=== PATIENT | male | born 1960 | race Caucasian/White ===

== ENCOUNTER 2017-03-11 10:43 | Emergency (ER) | payer SELFPAY ==
[~2017-03-11] VITALS: Ht 182.9 cm; Wt 117.7 kg
[~2017-03-11 10:43] MED LIST: Z.0.NO CURRENT MEDS
[2017-03-11 10:55] VITALS: BP 168/97; PULSE 102; RESP 18; TEMP 98.9; O2SAT 96
[2017-03-11] MEDS ORDERED: CLINDAMYCIN INJ 900 MG in SODIUM CHLORIDE 0.9% INJ 100 ML IV ONE (11:15)
[2017-03-11] MEDS ORDERED: TETANUS/DIPHTHERIA TOXOID ADULT 0.5 ML VIAL IM ONE (11:15)
[2017-03-11] MEDS ORDERED: ACETAMINOPHEN 325 MG TAB PO ONE (11:15)
--- NOTE | 2017-03-11 11:36 | RADRPT ---
EXAM DATE/TIME: 03/11/2017 11:27 [facility] COMPARISON: No previous studies available for comparison. INDICATIONS : Infection on plantar surface of right great toe after stepping on nail one week ago. Non healing woun d to great toe. MEDICAL HISTORY : None. SURGICAL HISTORY : None. ENCOUNTER: Initial ACUITY: 1 week PAIN SCORE: 8/10 LOCATION: Right great toe FINDINGS: 2 views of the right foot reveal soft tissue swelling involving the great toe. No retained foreign rhonda dy. No cortical destruction. No fracture or dislocation. Spurring of the calcaneus. 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 CONCLUSION: Soft tissue swelling of the great toe. No radiopaque foreign body or plain radiographic evidence to s uggest osteomyelitis. Sandoval Lua Jr., MD on March 11, 2017 at 11:34 Board Certified Radiologist. This report was verified electronically.
--- NOTE | 2017-03-11 11:37 | RADRPT ---
EXAM DATE/TIME: 03/11/2017 11:29 [facility] COMPARISON: No previous studies available for comparison. INDICATIONS : Pain, swelling, redness across dorsum of left foot post stepping on nail one week ago. Puncture wound s are on the plantar surface of the 3 middle toes of left foot. MEDICAL HISTORY : None. SURGICAL HISTORY : None. ENCOUNTER: Initial ACUITY: 1 week PAIN SCORE: 8/10 LOCATION: Left foot FINDINGS: Two view examination of the left foot demonstrates no soft tissue swelling, dislocation, or fracture. The calcaneus is intact. Bony mineralization is normal. No cortical destruction. No radiopaque for eign body. Spurring of the calcaneus. CONCLUSION: 1. No rate waveform body. 2. Spurring of the calcaneus. Sandoval Lua Jr., MD on March 11, 2017 at 11:35 Board Certified Radiologist. This report was verified electronically.
--- NOTE | 2017-03-11 11:45 | PD ---
HPI Chief Complaint: Skin Problem Time Seen by Provider: 11:05 Travel History International Travel<30 days: No Contact w/Intl Traveler<30days: No Traveled to known affect area: No History of Present Illness HPI The patient is 56 years old and arrives following the event of stepping on a nail through the sole of the shoe evidently on both sides about 5 days ago. He started Bactrim 2 days ago. He notes a fever over the weekend as high as 101.5 amp. After starting Bactrim no fever has returned however redness about the feet and has persisted. Mild to moderate persistent pain and swelling is noted. He does not recall timing of last tetanus. PFSH Past Medical History Diminished Hearing: No Tetanus Vaccination: Unknown Influenza Vaccination: No Social History Alcohol Use: Yes (DAILY) Tobacco Use: No Substance Use: No Allergies-Medications (Allergen,Severity, Reaction): Coded Allergies: codeine (Unverified Adverse Reaction, Intermediate, GI UPSET, 03/03/17) Reported Meds & Prescriptions Reported Meds & Active Scripts Active Cipro (Ciprofloxacin HCl) 250 Mg Tab 750 Mg PO BID Clindamycin (Clindamycin HCl) 150 Mg Cap 450 Mg PO Q8HR Reported No Current Meds (Miscellaneous Medication) Misc Review of Systems Except as stated in HPI: all other systems reviewed are Neg General / Constitutional: Positive: Fever Physical Exam Narrative GENERAL: Well-nourished well-developed 56-year-old male SKIN: Warm and dry. Erythema about the bilateral lower extremities on the dorsal aspect of the foot on the left side more than the right side. There is generalized erythema and swelling of the right great toe with some oozing of serous discharge. There is no purulent discharge or fluctuance. There is no crepitus. The skin about the lower extremities is somewhat shiny however vasculature is intact, 2+ dorsalis pedis and posterior tibialis bilaterally. HEAD: Atraumatic. Normocephalic. EYES: Pupils equal and round. No scleral icterus. No injection or drainage. ENT: No nasal bleeding or discharge. Mucous membranes pink and moist. NECK: Trachea midline. No JVD. CARDIOVASCULAR: Regular rate and rhythm. RESPIRATORY: No accessory muscle use. Clear to auscultation. Breath sounds equal bilaterally. GASTROINTESTINAL: Abdomen soft, non-tender, nondistended. Hepatic and splenic margins not palpable. MUSCULOSKELETAL: Extremities without clubbing, cyanosis, or edema. No obvious deformities. NEUROLOGICAL: Awake and alert. No obvious cranial nerve deficits. Motor grossly within normal limits. Five out of 5 muscle strength in the arms and legs. Normal speech. PSYCHIATRIC: Appropriate mood and affect; insight and judgment normal. Data Data Last Documented VS Vital Signs Date Time Temp Pulse Resp B/P (MAP) Pulse Ox O2 Delivery O2 Flow Rate FiO2 03/11/17 10:55 98.9 102 18 168/97 (120) 96 Vital signs reviewed Orders Orders Basic Metabolic Panel (Bmp) (03/11/17 11:12) Wound Culture And Gram Stain (03/11/17 11:12) Iv Access Insert/Monitor (03/11/17 11:12) Acetaminophen (Tylenol) (03/11/17 11:15) Clindamycin Inj (Cleocin Inj) (03/11/17 11:15) Tetanus/Diphtheria Tox Adult (Tetanus/Di (03/11/17 11:15) Complete Blood Count With Diff (03/11/17 11:12) Foot, Limited (2vws) (03/11/17 ) Foot, Limited (2vws) (03/11/17 ) Ciprofloxacin (Cipro) (03/11/17 12:30) Labs Laboratory Tests Test 03/11/17 11:45 03/11/17 11:55 Blood Urea Nitrogen 19 MG/DL Creatinine 1.20 MG/DL Random Glucose 123 MG/DL Calcium Level 7.7 MG/DL Sodium Level 134 MEQ/L Potassium Level 4.2 MEQ/L Chloride Level 101 MEQ/L Carbon Dioxide Level 25.6 MEQ/L Anion Gap 7 MEQ/L Estimat Glomerular Filtration Rate 62 ML/MIN White Blood Count 8.1 TH/MM3 Red Blood Count 3.97 MIL/MM3 Hemoglobin 13.4 GM/DL Hematocrit 39.7 % Mean Corpuscular Volume 100.1 FL Mean Corpuscular Hemoglobin 33.7 PG Mean Corpuscular Hemoglobin Concent 33.7 % Red Cell Distribution Width 13.1 % Platelet Count 124 TH/MM3 Mean Platelet Volume 8.7 FL Neutrophils (%) (Auto) 76.9 % Lymphocytes (%) (Auto) 11.0 % Monocytes (%) (Auto) 10.5 % Eosinophils (%) (Auto) 1.1 % Basophils (%) (Auto) 0.5 % Neutrophils # (Auto) 6.2 TH/MM3 Lymphocytes # (Auto) 0.9 TH/MM3 Monocytes # (Auto) 0.9 TH/MM3 Eosinophils # (Auto) 0.1 TH/MM3 Basophils # (Auto) 0.0 TH/MM3 CBC Comment DIFF FINAL Differential Comment MDM Medical Decision Making Medical Screen Exam Complete: Yes Emergency Medical Condition: Yes Medical Record Reviewed: Yes Differential Diagnosis Cellulitis, sepsis, necrotizing fasciitis, osteomyelitis, retained foreign body , gout Narrative Course Plain films of the feet reveal no sign of osteomyelitis or retained foreign body CBC & BMP Diagram 03/11/17 11:45 Calcium Level 7.7 L 03/11/17 11:55 Tetanus administered. Clindamycin and Cipro administered. We'll send the patient with Cipro and clindamycin. Return precautions discussed. Patient verbalized understanding. Diagnosis Primary Impression: Cellulitis of both feet Additional Impression: Injury by nail Qualified Codes: W45.0XXA - Nail entering through skin, initial encounter Referrals: Primary Care Physician 2 days Additional Instructions: You have a choice when it comes to health care, and we are glad that you chose [facility]. Hopefully, we have met your expectations on today's visit. You are welcome to return to [facility] at any time, as we are committed to meeting the health care needs of our community. Med/Other Pt SpecificInfo: Prescription(s) given Scripts Ciprofloxacin (Cipro) 250 Mg Tab 750 MG PO BID for Infection, #10 TAB 0 Refills Prov: Joselito King MD 03/11/17 Clindamycin (Clindamycin) 150 Mg Cap 450 MG PO Q8HR for Infection, #10 CAP 0 Refills Prov: Joselito King MD 03/11/17 Disposition: DISCHARGE HOME Condition: Stable Joselito King MD Mar 11, 2017 11:45
[2017-03-11 12:05] LABS: POTASSIUM 4.2 MEQ/L (3.5-5.1)
[2017-03-11 12:08] LABS: BICARBONATE 25.6 MEQ/L (21.0-32.0)
[2017-03-11 12:11] LABS: AUTOMATED NEUTROPHIL # 6.2 TH/MM3 (1.8-7.7); BASOPHIL % 0.5 % (0.0-2.0); EOSINOPHIL # 0.1 TH/MM3 (0-0.4); EOSINOPHIL % 1.1 % (0.0-4.0); HEMATOCRIT 39.7 % (39.0-51.0); LYMPHOCYTE # 0.9 TH/MM3 (1.0-4.8); MEAN CELL VOLUME 100.1 FL (80.0-100.0); MEAN CORPUSCULAR HEMOGLOBIN 33.7 PG (27.0-34.0); MEAN CORPUSCULAR HGB CONC 33.7 % (32.0-36.0); MONO % 10.5 % (0.0-8.0); NEUT % 76.9 % (16.0-70.0); PLATELET COUNT 124 TH/MM3 (150-450); RED BLOOD COUNT 3.97 MIL/MM3 (4.50-5.90); RED CELL DISTRIBUTION WIDTH 13.1 % (11.6-17.2); WHITE BLOOD COUNT 8.1 TH/MM3 (4.0-11.0)
[2017-03-11 12:12] LABS: HEMO FLAGS DIFF FINAL
[2017-03-11] MEDS ORDERED: CLIN1CAP5 PO (12:26)
[2017-03-11] MEDS ORDERED: CIPR-9 PO (12:26)
[2017-03-11] MEDS ORDERED: CIPR250T52 PO (12:30)
[2017-03-11] MEDS ORDERED: CIPROFLOXACIN 500 MG TAB PO ONE (12:30)
[2017-03-11 13:18] VITALS: BP 156/100
[2017-03-21] MEDS ORDERED: CEFT2INJ2 IV (08:48)
[2017-04-02] MEDS ORDERED: HYDR-4107 PO (08:51)
== END 2017-03-11 13:24 | disposition home or self-care (01) ==
LOC: PHED 10:43
DX: L03.116 Cellulitis of left lower limb (principal); L03.115 Cellulitis of right lower limb; R50.9 Fever, unspecified; S91.332A Puncture wound without foreign body, left foot, initial encounter; W45.0XXA Nail entering through skin, initial encounter
CPT/HCPCS: 73620; 80048; 85025; 86403; 87070; 87186; 87205; 90471; 90714

== ENCOUNTER 2017-03-14 10:02 | Inpatient (IN) | payer SELFPAY ==
[~2017-03-14] VITALS: Ht 182.9 cm; Wt 126.2 kg
[~2017-03-14 10:02] MED LIST changes: +CIPR250T52 PO; +CLIN1CAP5 PO
[2017-03-14 10:08] VITALS: BP 185/105; PULSE 96; RESP 16; TEMP 98.6; O2SAT 98
--- NOTE | 2017-03-14 10:29 | PD ---
HPI Chief Complaint: Skin Problem Time Seen by Provider: 10:12 Travel History International Travel<30 days: No Contact w/Intl Traveler<30days: No Traveled to known affect area: No History of Present Illness HPI 56-year-old male presents with worsening redness to his bilateral feet despite multiple antibiotics. He was originally on Bactrim then he came here on the and was changed to clindamycin and ciprofloxacin. He states that he hasn' t had any fevers or throwing up but the area started to develop pus pocket that he drained on its own on his right foot. He states that given the redness is increasing he elected to come in. Quality is red. Severity is progressive. He denies other concurrent complaints. He states originally on 1 foot he stepped on 3 nails on the other foot he stepped on one nail that went through the sole of his shoe PFS Past Medical History Medical History: Denies Significant Hx Diminished Hearing: No Influenza Vaccination: No ?: Not Past Surgical History Surgical History: No Previous Surgery Social History Alcohol Use: Yes (DAILY) Tobacco Use: No Substance Use: No Allergies-Medications (Allergen,Severity, Reaction): Coded Allergies: codeine (Unverified Adverse Reaction, Intermediate, GI UPSET, 03/14/17) Reported Meds & Prescriptions Reported Meds & Active Scripts Active Cipro (Ciprofloxacin HCl) 250 Mg Tab 750 Mg PO BID Clindamycin (Clindamycin HCl) 150 Mg Cap 450 Mg PO Q8HR Review of Systems Except as stated in HPI: all other systems reviewed are Neg Physical Exam Narrative GENERAL: Well-nourished, well-developed patient. SKIN: Cellulitic changes to bilateral feet with Erythema and warmth noted to left hallux, erythema and warmth noted to anterior surface of entire right foot with extension into digits, lateral aspect of right hallux with yellow discoloration to skin for patient states he had pus draining, to bottom of right foot there is small simple laceration HEAD: Normocephalic and atraumatic. EYES: No injection or drainage. ENT: No nasal drainage noted. NECK: Supple, trachea midline. CARDIOVASCULAR: Regular rate and rhythm RESPIRATORY: No increased effort. No accessory muscle use. EXTREMITIES: No edema. Pain to bilateral feet, neurovascularly intact, no other specific joint pain NEUROLOGICAL: Awake and alert. Motor and sensory grossly within normal limits. Normal speech. Data Data Last Documented VS Vital Signs Date Time Temp Pulse Resp B/P (MAP) Pulse Ox O2 Delivery O2 Flow Rate FiO2 03/14/17 11:00 87 18 159/102 (121) 97 Room Air 03/14/17 10:08 98.6 Orders Orders Complete Blood Count With Diff (03/14/17 10:23) Comprehensive Metabolic Panel (03/14/17 10:23) Prothrombin Time / Inr (Pt) (03/14/17 10:23) Act Partial Throm Time (Ptt) (03/14/17 10:23) Lactic Acid Sepsis Protocol (03/14/17 10:23) Magnesium (Mg) (03/14/17 10:23) Blood Culture (03/14/17 10:23) Ecg Monitoring (03/14/17 10:23) Iv Access Insert/Monitor (03/14/17 10:23) Oximetry (03/14/17 10:23) Foot, Complete ([id number]) (03/14/17 ) Foot, Complete ([id number]) (03/14/17 ) Mri Foot W&W/O Contrast (03/14/17 ) Mri Foot W&W/O Contrast (03/14/17 ) Vancomycin Inj (Vancomycin Inj) (03/14/17 11:36) Piperacil-Tazo 4.5 Gm Premix (Zosyn 4.5 (03/14/17 11:36) Admit Order (Ed Use Only) (03/14/17 11:51) Labs Laboratory Tests Test 03/14/17 10:30 White Blood Count 7.8 TH/MM3 Red Blood Count 4.05 MIL/MM3 Hemoglobin 13.9 GM/DL Hematocrit 40.9 % Mean Corpuscular Volume 100.7 FL Mean Corpuscular Hemoglobin 34.3 PG Mean Corpuscular Hemoglobin Concent 34.0 % Red Cell Distribution Width 13.6 % Platelet Count 144 TH/MM3 Mean Platelet Volume 8.3 FL Neutrophils (%) (Auto) 72.7 % Lymphocytes (%) (Auto) 14.6 % Monocytes (%) (Auto) 8.6 % Eosinophils (%) (Auto) 3.5 % Basophils (%) (Auto) 0.6 % Neutrophils # (Auto) 5.7 TH/MM3 Lymphocytes # (Auto) 1.1 TH/MM3 Monocytes # (Auto) 0.7 TH/MM3 Eosinophils # (Auto) 0.3 TH/MM3 Basophils # (Auto) 0.0 TH/MM3 CBC Comment DIFF FINAL Differential Comment Prothrombin Time 13.4 SEC Prothromb Time International Ratio 1.2 RATIO Activated Partial Thromboplast Time 29.0 SEC Blood Urea Nitrogen 14 MG/DL Creatinine 0.96 MG/DL Random Glucose 131 MG/DL Total Protein 7.9 GM/DL Albumin 2.2 GM/DL Calcium Level 8.2 MG/DL Magnesium Level 1.8 MG/DL Alkaline Phosphatase 123 U/L Aspartate Amino Transf (AST/SGOT) 195 U/L Alanine Aminotransferase (ALT/SGPT) 106 U/L Total Bilirubin 5.4 MG/DL Sodium Level 136 MEQ/L Potassium Level 4.3 MEQ/L Chloride Level 104 MEQ/L Carbon Dioxide Level 20.6 MEQ/L Anion Gap 11 MEQ/L Estimat Glomerular Filtration Rate 80 ML/MIN Lactic Acid Level 1.7 mmol/L MDM Medical Decision Making Medical Screen Exam Complete: Yes Emergency Medical Condition: Yes Medical Record Reviewed: Yes (past history confirm, labwork reviewed, culture was positive for pansensitive staph aureus, given Cipro and clindamycin) Interpretation(s) CBC & BMP Diagram 03/14/17 10:30 Total Protein 7.9, Albumin 2.2 L, Calcium Level 8.2 L, Magnesium Level 1.8, Alkaline Phosphatase 123 H, Aspartate Amino Transf (AST/SGOT) 195 H, Alanine Aminotransferase (ALT/SGPT) 106 H, Total Bilirubin 5.4 H Last 24 hours Impressions Foot X-Ray 03/14/17 0000 Signed Impressions: Service Date/Time: Tuesday, March 14, 2017 10:39 - CONCLUSION: No acute bony abnormality of the left foot. Robe Fish MD Foot X-Ray 03/14/17 0000 Signed Impressions: Service Date/Time: Tuesday, March 14, 2017 10:38 - CONCLUSION: 1. No acute bony abnormality of the right foot. 2. 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 3. Moderate to large heel spur. Robe Fish MD Differential Diagnosis Foreign body, abscess, cellulitis Narrative Course Will check blood work, x-ray and discuss with podiatry Patient updated and agrees to MRIs, admission and antibiotics with podiatry consultation Physician Communication Physician Communication dr norman states to check bilateral foot mris with and without contrast and admit to medicine with vancomycin and zosyn dr meehan agrees to admit Diagnosis Primary Impression: Puncture wound to foot Qualified Codes: S91.331A - Puncture wound without foreign body, right foot, initial encounter Additional Impressions: Cellulitis Qualified Codes: L03.115 - Cellulitis of right lower limb Puncture wound of foot Qualified Codes: S91.332A - Puncture wound without foreign body, left foot, initial encounter Cellulitis of foot, left Admitting Information Admitting Physician Requests: Admit Nilda Armstrong MD Mar 14, 2017 10:29
[2017-03-14 10:41] LABS: AUTOMATED NEUTROPHIL # 5.7 TH/MM3 (1.8-7.7); BASOPHIL % 0.6 % (0.0-2.0); EOSINOPHIL # 0.3 TH/MM3 (0-0.4); EOSINOPHIL % 3.5 % (0.0-4.0); HEMATOCRIT 40.9 % (39.0-51.0); HEMO FLAGS DIFF FINAL; LYMPH % 14.6 % (9.0-44.0); LYMPHOCYTE # 1.1 TH/MM3 (1.0-4.8); MEAN CELL VOLUME 100.7 FL (80.0-100.0); MEAN CORPUSCULAR HEMOGLOBIN 34.3 PG (27.0-34.0); MONO % 8.6 % (0.0-8.0); NEUT % 72.7 % (16.0-70.0); PLATELET COUNT 144 TH/MM3 (150-450); RED BLOOD COUNT 4.05 MIL/MM3 (4.50-5.90); RED CELL DISTRIBUTION WIDTH 13.6 % (11.6-17.2); WHITE BLOOD COUNT 7.8 TH/MM3 (4.0-11.0)
[2017-03-14 10:53] LABS: CHLORIDE 104 MEQ/L (98-107); POTASSIUM 4.3 MEQ/L (3.5-5.1); SODIUM (NA) 136 MEQ/L (136-145)
[2017-03-14 10:57] LABS: ANION GAP 11 MEQ/L (5-15); BICARBONATE 20.6 MEQ/L (21.0-32.0); BLOOD UREA NITROGEN 14 MG/DL (7-18); INTERNATIONAL NORMALIZED RATIO 1.2 RATIO; MAGNESIUM 1.8 MG/DL (1.5-2.5); PROTHROMBIN TIME - PATIENT 13.4 SEC (9.8-11.6)
[2017-03-14 11:00] VITALS: BP 159/102; PULSE 87; RESP 18; O2SAT 97
[2017-03-14 11:00] LABS: ALT (GPT) 106 U/L (12-78); AST (GOT) 195 U/L (15-37); GLOMERULAR FILTRATION RATE 80 ML/MIN (>89)
[2017-03-14 11:01] LABS: TOTAL BILIRUBIN ADULT 5.4 MG/DL (0.2-1.0)
[2017-03-14 11:02] LABS: ALKALINE PHOSPHATASE 123 U/L (45-117)
--- NOTE | 2017-03-14 11:06 | RADRPT ---
EXAM DATE/TIME: 03/14/2017 10:38 [facility] COMPARISON: No previous studies available for comparison. INDICATIONS : Bilateral foot infections from nail puncture wounds, no improvement to feet MEDICAL HISTORY : None. SURGICAL HISTORY : None. ENCOUNTER: Subsequent ACUITY: 1 week PAIN SCORE: 7/10 LOCATION: Right foot FINDINGS: No fracture, subluxation or bone destruction seen. No radiopaque foreign body. There is a moderate to large heel spur. There is osteoarthritis of the ankle joint with small anterior and posterior osteochondral bodies. CONCLUSION: 1. No acute bony abnormality of the right foot. 2. 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 3. Moderate to large heel spur. Robe Fish MD on March 14, 2017 at 11:03 Board Certified Radiologist. This report was verified electronically.
--- NOTE | 2017-03-14 11:06 | RADRPT ---
EXAM DATE/TIME: 03/14/2017 10:39 [facility] COMPARISON: No previous studies available for comparison. INDICATIONS : Bilateral foot infection from nail puncture wounds, no improvement to feet MEDICAL HISTORY : None. SURGICAL HISTORY : None. ENCOUNTER: Subsequent ACUITY: 1 week PAIN SCORE: 7/10 LOCATION: Left foot FINDINGS: No fracture, subluxation or bone destruction seen of the left foot. No radiopaque foreign body. There is a moderate-sized heel spur. CONCLUSION: No acute bony abnormality of the left foot. Robe Fish MD on March 14, 2017 at 11:04 Board Certified Radiologist. This report was verified electronically.
[2017-03-14] MEDS ORDERED: VANCOMYCIN INJ 1,000 MG in SODIUM CHLOR 0.9% 250 ML INJ 250 ML IV STA (11:36)
[2017-03-14] MEDS ORDERED: PIPERACIL-TAZO 4.5 GM PREMIX 100 ML IV STA (11:36)
[2017-03-14] MEDS ORDERED: NALOXONE HCL 0.4 MG/ML AMP IV PRN (12:00)
[2017-03-14] MEDS ORDERED: SODIUM CHLORIDE 0.9% FLUSH 10 ML FLUSH IV FLUSH PRN (12:00)
[2017-03-14] MEDS ORDERED: LACTULOSE SYRUP 20 GM/30 ML CUP PO PRN (12:00)
[2017-03-14] MEDS ORDERED: ONDANSETRON HCL 4 MG/2 ML VIAL IVP PRN (12:00)
[2017-03-14] MEDS ORDERED: BISACODYL 10 MG SUPP RECTAL PRN (12:00)
[2017-03-14] MEDS ORDERED: MAGNESIUM HYDROXIDE SUSP 30 ML CUP PO PRN (12:00)
[2017-03-14] MEDS ORDERED: SENNOSIDES 8.6 MG TAB PO PRN (12:00)
[2017-03-14] MEDS ORDERED: Vancomycin Consult Pharmacy 1 EA OTHER SCH (12:15)
[2017-03-14] MEDS ORDERED: VANCOMYCIN INJ 1,000 MG in SODIUM CHLOR 0.9% 250 ML INJ 250 ML IV ONE (12:45)
[2017-03-14] MEDS: SODIUM CHLOR 0.45% 1000 ML INJ 1,000 ML IV SCH (12:49)
[2017-03-14 12:55] LABS: TOTAL BILIRUBIN ADULT 5.5 MG/DL (0.2-1.0)
[2017-03-14 13:01] VITALS: BP 170/99; PULSE 74; RESP 18; O2SAT 97
--- NOTE | 2017-03-14 13:01 | RADRPT ---
EXAM DATE/TIME: 03/14/2017 17:29 [facility] COMPARISON: No previous studies available for comparison. INDICATIONS : Increased lab values. MEDICAL HISTORY : Abdomen pain. Bilateral feet swelling. SURGICAL HISTORY : None. ENCOUNTER: Initial ACUITY: 3 days PAIN SCORE: 3/10 LOCATION: Bilateral upper quadrant MEASUREMENTS: LIVER: 19.9 cm length COMMON DUCT: 3 mm RIGHT KIDNEY: 14.0 x 5.3 x 4.9 cm SPLEEN: 11.2 cm length FINDINGS: LIVER: The liver demonstrates mildly heterogeneous echotexture without evidence of mass or biliary obstructi on. The liver appears mildly enlarged COMMON DUCT: No intraluminal mass or stone visualized. GALLBLADDER: The gallbladder is contracted without evidence of stones. PANCREAS: The pancreas appears mildly ill-defined and increased in echogenicity. RIGHT KIDNEY: Well-circumscribed simple benign cyst and punctate small, 4 mm stones identified within the midpole. No evidence of hydronephrosis. SPLEEN: Multiple echogenic foci with posterior shadowing consistent with small calcified granulomas. CONCLUSION: The liver appears mildly enlarged in size and heterogeneous in echotexture. No evidence of mass or bi liary obstruction. The pancreas appears increased in echogenicity and somewhat ill-defined. This may represent findings secondary to acute pancreatitis. Correlate with patient's laboratory values. Francesca Jerry MD on March 14, 2017 at 12:56 Board Certified Radiologist. This report was verified electronically.
[2017-03-14] MEDS ORDERED: GADODIAMIDE PF 287 MG/ML 20 ML VIAL (for RAD MRI) IVCONTRAST ONE (16:17)
--- NOTE | 2017-03-14 16:41 | RADRPT ---
EXAM DATE/TIME: 03/14/2017 15:14 [facility] COMPARISON: No previous studies available for comparison. INDICATIONS : Abscess. CONTRAST: 20 cc Omniscan (gadodiamide) IV MEDICAL HISTORY : None. SURGICAL HISTORY : None. ENCOUNTER: Initial ACUITY: 1 week PAIN SCORE: 5/10 LOCATION: Left foot TECHNIQUE: Multiplanar, multisequence MRI examination was performed without contrast and after the intravenous a dministration of gadolinium. FINDINGS: There is evidence of diffuse marrow edema and enhancement involving the shaft and head of the left 3r d metatarsal as well as the proximal portion of the left 3rd proximal phalanx raising the possibility of osteomyelitis of these bones. Extensive surrounding soft tissue edema and enhancement is also no anila consistent with cellulitis. There is deep soft tissue abscess along the inferior aspect of the l eft 3rd metatarsal head measuring 1.4 x 1.3 cm as well as superficial subcutaneous abscess collection s along the dorsum of the left mid foot superficial to the extensor tendons with the largest collecti on measuring 2.3 x 1.0 cm. CONCLUSION: Marrow edema and enhancement involving the shaft and head of the left 3rd metatarsal as well as the p roximal portion of the 3rd proximal phalanx consistent with probable osteomyelitis of these bones. T here is also probable deep soft tissue abscess along the plantar aspect of the left 3rd metatarsal me asuring 1.4 x 1.3 cm as well as more superficial subcutaneous abscess collections along the dorsum of the left mid foot superficial to the extensor tendons with the largest collection measuring 2.3 x 1. 0 cm. Diffuse subcutaneous swelling and enhancement is also noted suggestive of cellulitis of the le ft mid foot. Thor Lock MD on March 14, 2017 at 16:23 Board Certified Radiologist. This report was verified electronically.
--- NOTE | 2017-03-14 16:58 | RADRPT ---
EXAM DATE/TIME: 03/14/2017 14:26 [facility] COMPARISON: No previous studies available for comparison. INDICATIONS : Abscess. CONTRAST: 20 cc Omni scan (gadodiamide) IV MEDICAL HISTORY : None. SURGICAL HISTORY : None. ENCOUNTER: Initial ACUITY: 1 week PAIN SCORE: 5/10 LOCATION: Right foot TECHNIQUE: Multiplanar, multisequence MRI examination was performed without contrast and after the intravenous a dministration of gadolinium. FINDINGS: There is diffuse subcutaneous enhancement involving the plantar aspect of the right mid foot predomin antly along the plantar aspects of the 1st, 2nd and 3rd metatarsals but also extending between the 1s t and 2nd metatarsal towards the dorsal aspect of the right foot. This finding is consistent with ex tensive cellulitis. Small subcutaneous abscesses are identified along the plantar aspect of the righ t foot with the largest measuring 1.1 x 0.6 cm. There is very slight enhancement of the right 1st pr oximal phalanx raising the possibility of osteomyelitis of this bone. CONCLUSION: 1. Diffuse subcutaneous swelling and enhancement along the plantar aspect of the right mid foot pred ominantly in the region of the 1st, 2nd and 3rd metatarsals but also extending between the 1st and 2n d metatarsal towards the dorsal surface of the right foot consistent with diffuse cellulitis. 2. Small subcutaneous abscess collections along the plantar aspect of the right mid foot with the la rgest measuring 11 x 6 mm. 3. Subtle enhancement of the 1st proximal phalanx raising the possibility of osteomyelitis of this b one. Thor Lock MD on March 14, 2017 at 16:34 Board Certified Radiologist. This report was verified electronically.
[2017-03-14 17:00] VITALS: BP 197/121; PULSE 74; RESP 17; TEMP 97.6; O2SAT 100
[2017-03-14] MEDS ORDERED: NIFEdipine 30 MG SUSTAINED RELEASE TAB PO ONE (17:15)
--- NOTE | 2017-03-14 17:22 | HHI.HP ---
[facility] No Primary Care Physician Admission Diagnosis bilateral foot infection Diagnoses: Travel History International Travel<30 Days: No Contact w/Intl Traveler <30 Da: No Traveled to Known Affected Are: No History of Present Illness 56-year-old male with no reported past medical history, who presents with having stepped on nails in bilateral feet 2 weeks ago. Reports continued worsening pain in bilateral feet. He reports fevers up to 101 Fahrenheit. Patient previously seen in the ER here, and had been on Cipro and clindamycin. He denies any fevers, chills, chest pain, shortness of breath, constipation, diarrhea. LFTs were ordered in the ER and elevated. When asked about his yellow appearance, he does say that his noted it today for the first time. denies any abdominal pain. He does drink about 8 ounces of vodka every day, however his most recent drink was 2 weeks ago. Review of Systems Except as stated in HPI: all other systems reviewed are Neg Past Family Social History Past Medical History Patient denies any past medical history. 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 Reported Medications patient takes [id number] naproxen as necessary. Allergies: Coded Allergies: codeine (Unverified Adverse Reaction, Intermediate, GI UPSET, 03/14/17) Family History Mother with Alzheimer's. Father is estranged. Social History Patient quit smoking 12 years ago. Patient drinks to 4 ounce vodka drinks per day, however quit 2 weeks ago. Denies any illicit drugs. Physical Exam Vital Signs Vital Signs Date Time Temp Pulse Resp B/P (MAP) Pulse Ox O2 Delivery O2 Flow Rate FiO2 03/14/17 14:02 03/14/17 13:01 74 18 170/99 (122) 97 Room Air 03/14/17 11:00 87 18 159/102 (121) 97 Room Air 03/14/17 10:08 98.6 96 16 185/105 (131) 98 Physical Exam GENERAL: This is a well-nourished, well-developed patient, in no apparent distress. Alert and oriented 3. SKIN: No rashes, ecchymoses or lesions. Cool and dry. HEAD: Atraumatic. Normocephalic. No temporal or scalp tenderness. EYES: Pupils equal round and reactive. Extraocular motions intact. No scleral icterus. No injection or drainage. ENT: Nose without bleeding, purulent drainage or septal hematoma. Throat without erythema, tonsillar hypertrophy or exudate. Uvula midline. Airway patent. NECK: Trachea midline. No JVD or lymphadenopathy. Supple, nontender, no meningeal signs. CARDIOVASCULAR: Regular rate and rhythm without murmurs, gallops, or rubs. RESPIRATORY: Clear to auscultation. Breath sounds equal bilaterally. No wheezes , rales, or rhonchi. GASTROINTESTINAL: Abdomen soft, non-tender, nondistended. No hepato-splenomegaly , or palpable masses. No guarding. MUSCULOSKELETAL: Extremities without clubbing, cyanosis, or edema. . No calf tenderness. Negative Homans sign bilaterally. I lateral feet with erythema. Right foot with first MTP erythema, warmth. Left foot with erythema over the dorsum. Slight cracked skin between the third and fourth foot NEUROLOGICAL: Awake and alert. Cranial nerves II through XII intact. Motor and sensory grossly within normal limits. Five out of 5 muscle strength in all muscle groups. Normal speech. Laboratory Laboratory Tests Test 03/14/17 10:20 03/14/17 10:30 03/14/17 12:20 03/14/17 12:55 Total Bilirubin 5.5 5.4 Direct Bilirubin 3.5 Indirect Bilirubin 2.0 White Blood Count 7.8 Red Blood Count 4.05 Hemoglobin 13.9 Hematocrit 40.9 Mean Corpuscular Volume 100.7 Mean Corpuscular Hemoglobin 34.3 Mean Corpuscular Hemoglobin Concent 34.0 Red Cell Distribution Width 13.6 Platelet Count 144 Mean Platelet Volume 8.3 Neutrophils (%) (Auto) 72.7 Lymphocytes (%) (Auto) 14.6 Monocytes (%) (Auto) 8.6 Eosinophils (%) (Auto) 3.5 Basophils (%) (Auto) 0.6 Neutrophils # (Auto) 5.7 Lymphocytes # (Auto) 1.1 Monocytes # (Auto) 0.7 Eosinophils # (Auto) 0.3 Basophils # (Auto) 0.0 CBC Comment DIFF FINAL Differential Comment Prothrombin Time 13.4 Prothromb Time International Ratio 1.2 Activated Partial Thromboplast Time 29.0 Blood Urea Nitrogen 14 Creatinine 0.96 Random Glucose 131 Total Protein 7.9 Albumin 2.2 Calcium Level 8.2 Magnesium Level 1.8 Alkaline Phosphatase 123 Aspartate Amino Transf (AST/SGOT) 195 Alanine Aminotransferase (ALT/SGPT) 106 Sodium Level 136 Potassium Level 4.3 Chloride Level 104 Carbon Dioxide Level 20.6 Anion Gap 11 Estimat Glomerular Filtration Rate 80 Lactic Acid Level 1.7 Urine Opiates Screen NEG Urine Barbiturates Screen NEG Urine Amphetamines Screen NEG Urine Benzodiazepines Screen NEG Urine Cocaine Screen NEG Urine Cannabinoids Screen POS Date/Time Source Procedure Growth Status 03/14/17 10:35 Blood Peripheral Aerobic Blood Culture Pending Received 03/14/17 10:35 Blood Peripheral Anaerobic Blood Culture Pending Received Result Diagram: 03/14/17 1030 03/14/17 1030 Imaging Last Impressions Liver Ultrasound 03/14/17 0000 Signed Impressions: Service Date/Time: Tuesday, March 14, 2017 17:29 - CONCLUSION: The liver appears mildly enlarged in size and heterogeneous in echotexture. No evidence of mass or biliary obstruction. The pancreas appears increased in echogenicity and somewhat ill-defined. This may represent findings secondary to acute pancreatitis. Correlate with patient's laboratory values. Francesca Jerry MD Foot X-Ray 03/14/17 0000 Signed Impressions: Service Date/Time: Tuesday, March 14, 2017 10:39 - CONCLUSION: No acute bony abnormality of the left foot. Robe Fish MD Capcassi VTE Risk Assessment Caprini VTE Risk Assessment: No/Low Risk (score <= 1) Caprini Risk Assessment Model Point Value = 1 Point Value = 2 Point Value = 3 Point Value = 5 Age 41-60 Minor surgery BMI > 25 kg/m2 Swollen legs Varicose veins or History of unexplained or recurrent spontaneous Oral contraceptives or hormone replacement Sepsis (< 1 month) Serious lung disease, including pneumonia (< 1 month) Abnormal pulmonary function Acute myocardial infarction Congestive heart failure (< 1 month) History of inflammatory bowel disease Medical patient at bed rest Age 61-74 Arthroscopic surgery Major open surgery (> 45 min) Laparoscopic surgery (> 45 min) Malignancy Confined to bed (> 72 hours) Immobilizing plaster cast Central venous access Age >= 75 History of VTE Family history of VTE Factor V Leiden Prothrombin [id number] Lupus anticoagulant Anticardiolipin antibodies Elevated serum homocysteine Heparin-induced thrombocytopenia Other congenital or acquired thrombophilia Stroke (< 1 month) Elective arthroplasty Hip, pelvis, or leg fracture Acute spinal cord injury (< 1 month) Prophylaxis Regimen Total Risk Factor Score Risk Level Prophylaxis Regimen 0-1 Low Early ambulation 2 Moderate Order ONE of the following: *Sequential Compression Device (SCD) *Heparin 5000 units SQ BID 3-4 Higher Order ONE of the following medications: *Heparin 5000 units SQ TID *Enoxaparin/Lovenox 40 mg SQ daily (WT < 150 kg, CrCl > 30 mL/min) *Enoxaparin/Lovenox 30 mg SQ daily (WT < 150 kg, CrCl > 10-29 mL/min) *Enoxaparin/Lovenox 30 mg SQ BID (WT < 150 kg, CrCl > 30 mL/min) AND/OR *Sequential Compression Device (SCD) 5 or more Highest Order ONE of the following medications: *Heparin 5000 units SQ TID (Preferred with Epidurals) *Enoxaparin/Lovenox 40 mg SQ daily (WT < 150 kg, CrCl > 30 mL/min) *Enoxaparin/Lovenox 30 mg SQ daily (WT < 150 kg, CrCl > 10-29 mL/min) *Enoxaparin/Lovenox 30 mg SQ BID (WT < 150 kg, CrCl > 30 mL/min) AND *Sequential Compression Device (SCD) Assessment and Plan Assessment and Plan //Bilateral lower extremity foot abscess with //osteomyelitis. acute //Suspected sepsis -Patient reports measured fevers at home up to 101 Fahrenheit. Tachycardic on admission. -MRI report reviewed. -Lactate 1.6. Blood cultures pending. Podiatry consulted. Appreciate assistance. //Accelerated hypertension. -Systolic blood pressure up to 220s -TSH ordered Nifedipine ordered. Clonidine when necessary. Continue to monitor. //Transaminitis -Scleral icterus on exam. -Patient with no complaints of abdominal pain. -Liver ultrasound mildly enlarged. Ill-defined pancreas -AST, ALC elevated 195, 106, with bilirubinemia. no anemia. -Further labs pending. //Thrombocytopenia. Likely secondary to liver disease. No signs of bleeding. Continue to monitor. //Hyperglycemia. Glucose 131 on admission. A1c ordered and pending. //Prophylaxis. SCDs. Otherwise As per surgical service. Discussed Condition With Patient, nurse, ED physician. Physician Certification 2 Midnight Certification Type: Admission for Inpatient Services Order for Inpatient Services The services are ordered in accordance with Medicare regulations or non- Medicare payer requirements, as applicable. In the case of services not specified as inpatient-only, they are appropriately provided as inpatient services in accordance with the 2-midnight benchmark. Estimated LOS (days): 3 days is the estimated time the patient will need to remain in the hospital, assuming treatment plan goals are met and no additional complications. Post-Hospital Plan: Not yet determined Jeff Lantigua MD Mar 14, 2017 17:22
[2017-03-14 20:00] VITALS: BP 190/115; PULSE 77; RESP 20; TEMP 96.3; O2SAT 98
--- NOTE | 2017-03-14 20:05 | PD.CONS ---
History of Present Illness Service Podiatry Consult Requested By Reason for Consult R and L foot infections, s/p puncture wound with nails Primary Care Physician No Primary Care Physician Diagnoses: History of Present Illness 56-year-old male with no reported past medical history, who presents with having stepped on nails in bilateral feet 2 weeks ago. Came in to ED on and Podiatry was not consulted regarding this patient. He had fever at that visit and redness/swelling with pain. Reports continued worsening pain in bilateral feet. He reports fevers up to 101 Fahrenheit. Patient was given rx for Cipro and clindamycin when seen in ED at previous visit. He denies any fevers, chills, chest pain, shortness of breath, constipation, diarrhea. Past Family Social History Allergies: Coded Allergies: codeine (Unverified Adverse Reaction, Intermediate, GI UPSET, 03/14/17) Past Medical History Patient denies any past medical history. 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 Active Ordered Medications Current Medications Medications (Trade) Dose Ordered Sig/Deanna Route Start Time Stop Time Status Last Admin Sodium Chloride 1,000 ml @ 75 mls/hr [id number] IV 03/14/17 11:52 03/15/17 15:51 (NS Flush) 2 ml UNSCH PRN IV FLUSH 03/14/17 12:00 (NS Flush) 2 ml BID IV FLUSH 03/14/17 21:00 03/14/17 21:00 (Zofran Inj) 4 mg Q6H PRN IVP 03/14/17 12:00 (Narcan Inj) 0.4 mg UNSCH PRN IV 03/14/17 12:00 (Milk Of Magnesia Liq) 30 ml Q12H PRN PO 03/14/17 12:00 (Senokot) 17.2 mg Q12H PRN PO 03/14/17 12:00 (Dulcolax Supp) 10 mg DAILY PRN RECTAL 03/14/17 12:00 (Lactulose Liq) 30 ml DAILY PRN PO 03/14/17 12:00 Pharmacy Profile Note 0 ml @ 0 mls/hr UNSCH OTHER 03/14/17 12:15 Piperacillin Sod/ Tazobactam Sod 100 ml @ 200 mls/hr Q6H IV 03/14/17 19:00 03/15/17 15:46 Miscellaneous Information SPECIFIC LAB TO BE DRAWN:VANCO TROUGH DATE TO BE DRDiana.. ONCE ONCE .XX 03/15/17 23:45 03/15/17 23:46 Vancomycin HCl 2000 mg/Sodium Chloride 520 ml @ 250 mls/hr Q12H IV 03/15/17 00:00 03/15/17 12:30 (Catapres) 0.1 mg Q6H PRN PO 03/14/17 17:15 03/14/17 23:21 (Procardia Xl) 30 mg DAILY PO 03/15/17 09:00 (Roxicodone) 10 mg Q4H PRN PO 03/15/17 17:30 03/15/17 17:33 (Roxicodone) 5 mg Q6H PRN PO 03/15/17 17:30 Calcium Gluconate 1 gm/Sodium Chloride 100 ml @ 100 mls/hr ONCE ONCE IV 03/15/17 21:00 03/15/17 21:59 Family History Mother with Alzheimer's. Father is estranged. Social History Patient quit smoking 12 years ago. Patient drinks to 4 ounce vodka drinks per day, however quit 2 weeks ago. Denies any illicit drugs. Physical Exam Vital Signs Vital Signs Date Time Temp Pulse Resp B/P (MAP) Pulse Ox O2 Delivery O2 Flow Rate FiO2 03/14/17 17:00 97.6 74 17 197/121 (146) 100 03/14/17 14:02 03/14/17 13:01 74 18 170/99 (122) 97 Room Air 03/14/17 11:00 87 18 159/102 (121) 97 Room Air 03/14/17 10:08 98.6 96 16 185/105 (131) 98 Physical Exam Neurovascularly intact. Small puncture wound to plantar R base of hallux. Minimal erythema today. No purulence noted. Painful Small puncture wound L plantar central forefoot with diffuse erythema and induration noted to dorsal forefoot and pain. Laboratory Laboratory Tests Test 03/14/17 10:20 03/14/17 10:30 03/14/17 12:20 03/14/17 12:55 Total Bilirubin 5.5 5.4 Direct Bilirubin 3.5 Indirect Bilirubin 2.0 White Blood Count 7.8 Red Blood Count 4.05 Hemoglobin 13.9 Hematocrit 40.9 Mean Corpuscular Volume 100.7 Mean Corpuscular Hemoglobin 34.3 Mean Corpuscular Hemoglobin Concent 34.0 Red Cell Distribution Width 13.6 Platelet Count 144 Mean Platelet Volume 8.3 Neutrophils (%) (Auto) 72.7 Lymphocytes (%) (Auto) 14.6 Monocytes (%) (Auto) 8.6 Eosinophils (%) (Auto) 3.5 Basophils (%) (Auto) 0.6 Neutrophils # (Auto) 5.7 Lymphocytes # (Auto) 1.1 Monocytes # (Auto) 0.7 Eosinophils # (Auto) 0.3 Basophils # (Auto) 0.0 CBC Comment DIFF FINAL Differential Comment Prothrombin Time 13.4 Prothromb Time International Ratio 1.2 Activated Partial Thromboplast Time 29.0 Blood Urea Nitrogen 14 Creatinine 0.96 Random Glucose 131 Total Protein 7.9 Albumin 2.2 Calcium Level 8.2 Magnesium Level 1.8 Alkaline Phosphatase 123 Aspartate Amino Transf (AST/SGOT) 195 Alanine Aminotransferase (ALT/SGPT) 106 Sodium Level 136 Potassium Level 4.3 Chloride Level 104 Carbon Dioxide Level 20.6 Anion Gap 11 Estimat Glomerular Filtration Rate 80 Lactic Acid Level 1.7 Urine Opiates Screen NEG Urine Barbiturates Screen NEG Urine Amphetamines Screen NEG Urine Benzodiazepines Screen NEG Urine Cocaine Screen NEG Urine Cannabinoids Screen POS Test 03/14/17 17:30 Erythrocyte Sedimentation Rate 31 Total Creatine Kinase 35 C-Reactive Protein 0.60 Lipase 658 Thyroid Stimulating Hormone 3rd Gen 2.920 Date/Time Source Procedure Growth Status 03/14/17 10:35 Blood Peripheral Aerobic Blood Culture Pending Received 03/14/17 10:35 Blood Peripheral Anaerobic Blood Culture Pending Received Result Diagram: 03/14/17 1030 03/14/17 1030 Imaging Last 72 hours Impressions Liver Ultrasound 03/14/17 0000 Signed Impressions: Service Date/Time: Tuesday, March 14, 2017 17:29 - CONCLUSION: The liver appears mildly enlarged in size and heterogeneous in echotexture. No evidence of mass or biliary obstruction. The pancreas appears increased in echogenicity and somewhat ill-defined. This may represent findings secondary to acute pancreatitis. Correlate with patient's laboratory values. Francesca Jerry MD Foot X-Ray 03/14/17 0000 Signed Impressions: Service Date/Time: Tuesday, March 14, 2017 10:39 - CONCLUSION: No acute bony abnormality of the left foot. Robe Fish MD Foot X-Ray 03/14/17 Signed Impressions: Service Date/Time: Tuesday, March 14, 2017 10:38 - CONCLUSION: 1. No acute bony abnormality of the right foot. 2. 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 3. Moderate to large heel spur. Robe Fish MD Foot MRI 03/14/17 Signed Impressions: Service Date/Time: Tuesday, March 14, 2017 14:26 - CONCLUSION: 1. Diffuse subcutaneous swelling and enhancement along the plantar aspect of the right mid foot predominantly in the region of the 1st, 2nd and 3rd metatarsals but also extending between the 1st and 2nd metatarsal towards the dorsal surface of the right foot consistent with diffuse cellulitis. 2. Small subcutaneous abscess collections along the plantar aspect of the right mid foot with the largest measuring 11 x 6 mm. 3. Subtle enhancement of the 1st proximal phalanx raising the possibility of osteomyelitis of this bone. Thor Lock MD Foot MRI 03/14/17 Signed Impressions: Service Date/Time: Tuesday, March 14, 2017 15:14 - CONCLUSION: Marrow edema and enhancement involving the shaft and head of the left 3rd metatarsal as well as the proximal portion of the 3rd proximal phalanx consistent with probable osteomyelitis of these bones. There is also probable deep soft tissue abscess along the plantar aspect of the left 3rd metatarsal measuring 1.4 x 1.3 cm as well as more superficial subcutaneous abscess collections along the dorsum of the left mid foot superficial to the extensor tendons with the largest collection measuring 2.3 x 1.0 cm. Diffuse subcutaneous swelling and enhancement is also noted suggestive of cellulitis of the left mid foot. Thor Lock MD Assessment and Plan Assessment and Plan Osteomyelitis L 3rd metatarsal neck/digit Osteomyelitis possible R hallux, proximal phalanx To OR for R hallux amputation with possible partial first ray amputation vs I &D with bone biopsy To OR for partial 3rd ray amputation and bone biopsy. Plan to possibly pack open vs wound vac and possible that he may need additional surgery needed later in the week for delayed primary closure Patient amenable to treatment plan Possible long-term IV antibiotics pending biopsy of remnant 3rd metatarsal L , which will be taken intraoperatively to determine if long-term abx necessary vs short term NPO after midnight, surgery scheduled 8 am tomorrow Paulina Valdez DPM Mar 14, 2017 20:05
[2017-03-14] MEDS: SODIUM CHLORIDE 0.9% FLUSH 10 ML FLUSH IV FLUSH SCH (21:00)
[2017-03-14] MEDS: PIPERACIL-TAZO 4.5 GM PREMIX 100 ML IV SCH (22:19)
[2017-03-14] MEDS: cloNIDine HCL 0.1 MG TAB PO PRN (23:21)
[2017-03-15] VITALS (7 sets, daily range): BP systolic 125–163; BP diastolic 85–103; PULSE 72–90; RESP 20; TEMP 95.7–98.2; O2SAT 97–99
[2017-03-15] MEDS: PIPERACIL-TAZO 4.5 GM PREMIX 100 ML IV SCH ×5 (01:00→23:39)
[2017-03-15] MEDS: SODIUM CHLOR 0.45% 1000 ML INJ 1,000 ML IV SCH ×2 (01:12→15:51)
[2017-03-15] MEDS ORDERED: BUPIVACAINE HCL PF 0.5% 30 ML VIAL ONE (06:47)
[2017-03-15] MEDS ORDERED: LIDOCAINE HCL 2% 50 ML VIAL ONE (06:48)
[2017-03-15] MEDS ORDERED: FAMOTIDINE 20 MG/2 ML VIAL ONE ×2 (07:38→07:43)
[2017-03-15] MEDS ORDERED: MIDAZOLAM HCL 2 MG/2 ML VIAL ONE (07:39)
[2017-03-15] MEDS ORDERED: LACTATED RINGER'S 1000 ML INJ 1,000 ML ONE (08:26)
--- NOTE | 2017-03-15 08:27 | HHI.PR ---
Immediate Post Op Note Procedure Date: Mar 15, 2017 Pre Op Diagnosis: 1. Abscess R great toe, possible osteomyelitis 2. Osteomyelitis with abscess L 3rd metatarsal/toe Post Op Diagnosis: same Surgeon: Paulina Valdez DPM Credit Collection Specialist(s): Staff Procedure: 1. I&D abscess R hallux with bone biopsy R proximal phalanx, packed open 2. I&D L foot with partial L 3rd ray amputation and bone biopsy L residual 3rd metatarsal, packed open Findings: Consistent with diagnoses. Plantar puncture wound sub R 1st proximal phalanx. Incision made plantarly and abscess located. 2nd incision made to dorsomedial aspect of digit where abscess tracked. Irrigated with 3L NS. Culture taken R hallux. Bone biopsy taken of plantar aspect of proximal phalanx of hallux where nail hole path led toward. Partial closure and packing with 1/4'' iodoform gauze, 4x4, cast padding, veronica. Plantar puncture wound noted L sub 3rd met head area. Two semi-elliptical incisions made medially/laterally to encompass 3rd digit down to metatarsal. 3rd metatarsal transected and distal portion sent with toe to pathology as specimen. Bone from residual L 3rd metatarsal sent for biopsy. Culture taken L foot. Copious amount of purulent drainage noted. Irrigation with 3L NS, followed by partial closure and packing with 1/4'' iodoform gauze, 4x4, abd x 3 , cast padding, veronica. Likely attempt at DPC later this week. Await biopsy and culture results to determine need for long-term IV antibiotics and viability of R hallux. Likely surgery again later this week with Dr Moore. Additional Information: n/a Complications: None Specimen(s) removed: 1. culture R hallux 2. Bone biopsy R hallux proximal phalanx 3. culture L foot 4. L partial 3rd ray to pathology 5. Bone biopsy L residual 3rd metatarsal Estimated blood loss: Minimal Anesthesia: General, Local (10mL 0.5% marcaine plain R, 10mL 0.5% marcaine plain L) Drains: None, Other (Wound vac L foot) Tourniquet time (min at mmHg) R ankle tourniquet @ 250mmHg x 27 minutes L ankle tourniquet @ 250mmHg x 19 minutes Patient to: PACU Patient Condition: Good Date/Time of Procedure: SEE SURGICAL CARE RECORD Paulina Vladez DPM Mar 15, 2017 08:27
[2017-03-15] MEDS: NIFEdipine 30 MG SUSTAINED RELEASE TAB PO SCH (09:00)
[2017-03-15] MEDS: SODIUM CHLORIDE 0.9% FLUSH 10 ML FLUSH IV FLUSH SCH ×2 (09:00→21:00)
[2017-03-15] MEDS ORDERED: HYDROmorphone HCL PF 1 MG/ML VIAL ONE (10:09)
[2017-03-15 10:25] LABS: HEMOGLOBIN A1a 0.8 %; HEMOGLOBIN A1b 0.6 %; HEMOGLOBIN Ao 87.7 %; HEMOGLOBIN F 0.9 %; HEMOGLOBIN LA1C 1.9 %; HEMOGLOBIN P3 3.2 %
[2017-03-15] MEDS ORDERED: BUPIVACAINE HCL PF 0.5% 30 ML VIAL INFIL ONE (10:30)
--- NOTE | 2017-03-15 10:38 | RADRPT ---
EXAM DATE/TIME: 03/15/2017 10:20 [facility] COMPARISON: FOOT RIGHT COMPLETE ([id number]), March 14, 2017, 10:38. INDICATIONS : Post op right foot surgery MEDICAL HISTORY : None. SURGICAL HISTORY : None. ENCOUNTER: Subsequent ACUITY: 1 week PAIN SCORE: Non-responsive. LOCATION: Right foot FINDINGS: Three view examination of the right foot demonstrates no soft tissue swelling, dislocation, or fractu re. The tarsal bones appear intact. The interphalangeal and metatarsophalangeal joints are intact. The calcaneus is intact. Stable moderate-sized calcaneal enthesophytes. Bony mineralization is nor mal. CONCLUSION: Stable exam.. Francesca Jerry MD on March 15, 2017 at 10:35 Board Certified Radiologist. This report was verified electronically.
--- NOTE | 2017-03-15 10:39 | RADRPT ---
EXAM DATE/TIME: 03/15/2017 10:22 [facility] COMPARISON: FOOT LEFT COMPLETE ([id number]), March 14, 2017, 10:39. INDICATIONS : Post op left foot surgery MEDICAL HISTORY : None. SURGICAL HISTORY : None. ENCOUNTER: Subsequent ACUITY: 1 week PAIN SCORE: Non-responsive. LOCATION: Left foot FINDINGS: 3 views of the postoperative left foot demonstrate interval amputation of the third digit at the leve l of the mid metatarsal. The remainder of the osseous structures are intact with normal alignment. Mo derate subcutaneous air is seen at the postoperative site. CONCLUSION: Amputation of the third digit at the level of the mid metatarsal with expected postsurgical air. Francesca Jerry MD on March 15, 2017 at 10:37 Board Certified Radiologist. This report was verified electronically.
[2017-03-15 11:34] LABS: AUTOMATED NEUTROPHIL # 4.9 TH/MM3 (1.8-7.7); BASOPHIL # 0.3 TH/MM3 (0-0.2); BASOPHIL % 4.3 % (0.0-2.0); EOSINOPHIL # 0.2 TH/MM3 (0-0.4); EOSINOPHIL % 3.2 % (0.0-4.0); HEMATOCRIT 37.7 % (39.0-51.0); HEMO FLAGS DIFF FINAL; LYMPH % 16.2 % (9.0-44.0); LYMPHOCYTE # 1.1 TH/MM3 (1.0-4.8); MEAN CELL VOLUME 101.1 FL (80.0-100.0); MEAN CORPUSCULAR HEMOGLOBIN 35.2 PG (27.0-34.0); MEAN CORPUSCULAR HGB CONC 34.8 % (32.0-36.0); MONO % 7.3 % (0.0-8.0); PLATELET COUNT 126 TH/MM3 (150-450); RED BLOOD COUNT 3.72 MIL/MM3 (4.50-5.90); RED CELL DISTRIBUTION WIDTH 13.4 % (11.6-17.2)
[2017-03-15 11:44] LABS: CHLORIDE 105 MEQ/L (98-107); SODIUM (NA) 136 MEQ/L (136-145)
--- NOTE | 2017-03-15 11:46 | EKG ---
Date Performed: 03/15/2017 Time Performed: 08:04:36 PTAGE: 56 years EKG: Sinus rhythm POSSIBLE LEFT ATRIAL ENLARGEMENT LEFT ANTERIOR FASCICULAR BLOCK ABNORMAL ECG NO PREVIOUS TRACING DOCTOR: Abida Sullivan Interpretating Date/Time 03/15/2017 11:46:31
[2017-03-15 11:47] LABS: ANION GAP 9 MEQ/L (5-15); BICARBONATE 22.3 MEQ/L (21.0-32.0); BLOOD UREA NITROGEN 16 MG/DL (7-18)
[2017-03-15 11:50] LABS: ALT (GPT) 108 U/L (12-78); AST (GOT) 198 U/L (15-37)
[2017-03-15 11:51] LABS: GLOMERULAR FILTRATION RATE 77 ML/MIN (>89)
[2017-03-15 11:52] LABS: TOTAL BILIRUBIN ADULT 6.2 MG/DL (0.2-1.0)
[2017-03-15 11:53] LABS: ALKALINE PHOSPHATASE 98 U/L (45-117)
[2017-03-15] MEDS: VANCOMYCIN INJ 2,000 MG in SODIUM CHLORID 0.9% 500 ML INJ 500 ML IV SCH ×3 (12:30)
--- NOTE | 2017-03-15 16:30 | HHI.PR ---
Subjective Remarks Patient seen this morning around 10:30 after surgery. Reports pain is controlled. Denies any chest pain or shortness of breath. Denies any nausea or vomiting. Most recent bowel movement this morning before surgery. Objective Vital Signs Date Time Temp Pulse Resp B/P (MAP) Pulse Ox O2 Delivery O2 Flow Rate FiO2 03/15/17 16:00 97.1 80 20 125/85 (98) 97 03/15/17 11:04 95.7 85 20 146/98 (114) 97 03/15/17 10:45 98.0 72 16 119/72 (88) 99 Room Air 03/15/17 10:30 72 03/15/17 10:30 72 16 104/73 (83) 99 Nasal Cannula 2 03/15/17 10:15 71 16 125/70 (88) 99 Nasal Cannula 2 03/15/17 10:00 83 16 120/83 (95) 100 Nasal Cannula 2 03/15/17 09:55 98.1 88 16 124/78 (93) 100 Nasal Cannula 2 03/15/17 09:55 88 03/15/17 07:24 98.5 84 16 138/87 (104) 97 03/15/17 04:00 96.9 80 20 144/90 (108) 98 03/15/17 00:00 98.2 75 20 163/103 (123) 99 03/14/17 20:00 96.3 77 20 190/115 (140) 98 03/14/17 17:00 97.6 74 17 197/121 (146) 100 I/O 03/14/17 03/14/17 03/14/17 03/15/17 03/15/17 03/15/17 07:00 15:00 23:00 07:00 15:00 23:00 Intake Total 350 ml 600 ml 0 ml 2790 ml 1572 ml Output Total 900 ml 1115 ml Balance 350 ml 600 ml -900 ml 1675 ml 1572 ml Intake Oral 600 ml 0 ml 690 ml IV Total 350 ml 1572 ml Other 2100 ml Output Urine Total 900 ml 1025 ml Estimated Blood Loss 90 ml # Voids 3 2 0 # Bowel Movements 0 0 1 Result Diagram: 03/15/17 1125 03/15/17 1125 Objective Remarks GENERAL: Lying in bed. Appears comfortable. Alert and oriented 3. SKIN: Warm and dry. HEAD: Normocephalic. EYES: No scleral icterus. No injection or drainage. NECK: Supple, trachea midline. No JVD or lymphadenopathy. CARDIOVASCULAR: Regular rate and rhythm without murmurs, gallops, or rubs. RESPIRATORY: Breath sounds equal bilaterally. No accessory muscle use. GASTROINTESTINAL: Abdomen soft, non-tender, nondistended. MUSCULOSKELETAL: No cyanosis, or edema. Bilateral feet wrapped. Peripheral perfusion appears to be intact. BACK: Nontender without obvious deformity. No CVA tenderness. A/P Assessment and Plan ===03/15/17======= Postoperative bilateral foot debridement on 03/15. //Bilateral lower extremity foot abscess with //osteomyelitis. acute //Suspected sepsis //Postoperative bilateral foot debridement on 03/15. -Patient reports measured fevers at home up to 101 Fahrenheit. Tachycardic on admission. -MRI report reviewed. -Lactate 1.6. Blood cultures pending. -Surgical Management as per podiatry. Continue broad-spectrum antibiotics. //Accelerated hypertension. -Systolic blood pressure up to 220s on admission -TSH ordered 03/14 Nifedipine ordered. Clonidine when necessary. Continue to monitor. -03/15. Blood pressure improved. Continue to monitor. //Transaminitis -Scleral icterus on exam. -Patient with no complaints of abdominal pain. -Liver ultrasound mildly enlarged. Ill-defined pancreas -AST, ALC elevated 195, 106, with bilirubinemia. no anemia. -03/15. Lipase elevated 658, however asymptomatic. -Further labs pending. //Thrombocytopenia. Likely secondary to liver disease. No signs of bleeding. Continue to monitor. //Hyperglycemia. Glucose 131 on admission. Resolved. A1c 4.6. Nondiabetic. //Prophylaxis. SCDs. Otherwise As per surgical service. Discharge Planning Continues with IV antibiotics We'll need clearance from podiatry. Jeff Lantigua MD Mar 15, 2017 16:30
--- NOTE | 2017-03-15 16:40 | OTSOAPIP ---
TIME SESSION COMPLETED: AM TREATMENT TIME: 0 MINS. CHART REVIEWED. O: ATTEMPTED TO SEE X2 FOR OT CONSULT. PT REMAINS OFF FLOOR. WILL FOLLOW NEXT DAY. Therapist: CR GRAMAJO OT/L Signature on file
[2017-03-15] MEDS ORDERED: oxyCODONE/ACETAMINOPHEN 10 MG/325 MG TAB PO PRN (17:15)
[2017-03-15] MEDS ORDERED: oxyCODONE/ACETAMINOPHEN 5 MG/325 MG TAB PO PRN (17:15)
[2017-03-15] MEDS ORDERED: ACETAMINOPHEN 325 MG TAB PO PRN (17:15)
[2017-03-15] MEDS ORDERED: NALOXONE HCL 0.4 MG/ML AMP IV PRN (17:15)
[2017-03-15 19:05] LABS: POTASSIUM 3.9 MEQ/L (3.5-5.1)
[2017-03-15 19:35] LABS: BICARBONATE 23.7 MEQ/L (21.0-32.0); TOTAL BILIRUBIN ADULT 6.6 MG/DL (0.2-1.0)
[2017-03-15 20:10] LABS: MAGNESIUM 1.9 MG/DL (1.5-2.5)
[2017-03-15] MEDS ORDERED: CALCIUM CARBONATE 1.25 GM (CA 500 MG) TAB PO SCH (21:00)
[2017-03-15] MEDS ORDERED: CALCIUM GLUCONATE INJ 1 GM in SODIUM CHLORIDE 0.9% INJ 90 ML IV ONE (21:00)
[2017-03-15] MEDS ORDERED: PHARMACY ORDERED LAB ONE (23:45)
[2017-03-16] VITALS: BP 137/82; PULSE 78; RESP 20; TEMP 97.3; O2SAT 95
[2017-03-16] MEDS: VANCOMYCIN INJ 2,000 MG in SODIUM CHLORID 0.9% 500 ML INJ 500 ML IV SCH ×2 (01:12→22:00)
[2017-03-16] MEDS: SODIUM CHLOR 0.45% 1000 ML INJ 1,000 ML IV SCH ×2 (03:52→17:12)
[2017-03-16] MEDS: PIPERACIL-TAZO 4.5 GM PREMIX 100 ML IV SCH ×3 (06:14→18:12)
[2017-03-16 08:00] VITALS: BP 142/93; PULSE 75; RESP 18; TEMP 97.9
[2017-03-16] MEDS: SODIUM CHLORIDE 0.9% FLUSH 10 ML FLUSH IV FLUSH SCH ×2 (08:51→20:07)
[2017-03-16] MEDS: NIFEdipine 30 MG SUSTAINED RELEASE TAB PO SCH (08:51)
--- NOTE | 2017-03-16 12:02 | HHI.PR ---
Subjective Remarks Patient seen this morning around 10 AM. Says pain is under control. Denies any chest pain or shortness of breath. He does report a rash on his back. Discussed with patient and nursing. Initially the room was hot Yesterday, Sweaty. Improved Today with Decreasing Thermostat Yesterday. Objective Vital Signs Date Time Temp Pulse Resp B/P (MAP) Pulse Ox O2 Delivery O2 Flow Rate FiO2 03/16/17 08:00 97.9 75 18 142/93 (109) 03/16/17 00:00 97.3 78 20 137/82 (100) 95 03/15/17 20:00 97.0 90 20 142/96 (111) 99 03/15/17 16:00 97.1 80 20 125/85 (98) 97 I/O 03/15/17 03/15/17 03/15/17 03/16/17 03/16/17 03/16/17 07:00 15:00 23:00 07:00 15:00 23:00 Intake Total 0 ml 2790 ml 1912 ml 1420 ml Output Total 900 ml 1115 ml 1100 ml 1200 ml Balance -900 ml 1675 ml 812 ml 220 ml Intake Oral 0 ml 690 ml 240 ml 720 ml IV Total 1672 ml 700 ml Other 2100 ml Output Urine Total 900 ml 1025 ml 1100 ml 1200 ml Estimated Blood Loss 90 ml # Voids 2 0 2 # Bowel Movements 0 1 1 Result Diagram: 03/15/17 1125 03/15/17 1842 Objective Remarks GENERAL: Lying in bed. Appears comfortable. Alert and oriented 3. SKIN: Warm and dry. Faint erythematous heat rash over the bilateral upper back. no confluence. No pus. Some excoriations HEAD: Normocephalic. EYES: No scleral icterus. No injection or drainage. NECK: Supple, trachea midline. No JVD or lymphadenopathy. CARDIOVASCULAR: Regular rate and rhythm without murmurs, gallops, or rubs. RESPIRATORY: Breath sounds equal bilaterally. No accessory muscle use. GASTROINTESTINAL: Abdomen soft, non-tender, nondistended. MUSCULOSKELETAL: No cyanosis, or edema. Bilateral feet wrapped. Peripheral perfusion appears to be intact. BACK: Nontender without obvious deformity. No CVA tenderness. A/P Assessment and Plan //Bilateral lower extremity foot abscess with //osteomyelitis. acute //Suspected sepsis //Postoperative bilateral foot debridement on 03/15. -Patient reports measured fevers at home up to 101 Fahrenheit. Tachycardic on admission. -MRI report reviewed. -Lactate 1.6. Blood cultures no growth to date. -Surgical Management as per podiatry. Continue broad-spectrum antibiotics. -03/16-Discussed with podiatry today. Possible need for repeat surgery. Have consulted infectious disease today due to need for ongoing IV antibiotics 2 weeks as recommended by podiatry. Gram-positive cocci on operative Gram stain. Operative cultures and blood cultures negative at this time. //Accelerated hypertension. -Systolic blood pressure up to 220s on admission -TSH ordered 03/14 Nifedipine ordered. Clonidine when necessary. Continue to monitor. -03/15. Blood pressure improved. Continue to monitor. //Heat rash back. Worsened on 03/16, however this has been ongoing for patient home as well. -This appears mild. Recommend bathing. Also recommended dormant pad behind the patient to help with moisture buildup. //Transaminitis -Scleral icterus on exam. -Patient with no complaints of abdominal pain. -Liver ultrasound mildly enlarged. Ill-defined pancreas -AST, ALC elevated 195, 106, with bilirubinemia. no anemia. -03/15. Lipase elevated 658, however asymptomatic. -Further labs pending. -03/15. GI consult ordered -03/16. Repeat labs pending. Follow-up gastroenterology recommendations. //Thrombocytopenia. 144 on admission. Likely secondary to liver disease. No signs of bleeding. Continue to monitor. -03/16. No signs of bleeding. Repeat labs ordered for today //Hyperglycemia. Glucose 131 on admission. Resolved. A1c 4.6. Nondiabetic. //Prophylaxis. SCDs. Otherwise As per surgical service. Discharge Planning Continues with IV antibiotics We'll need clearance from podiatry. -IV antibiotic plan as per infectious disease. cs Pending Jeff Lantigua MD Mar 16, 2017 12:02
[2017-03-16 12:30] LABS: AUTOMATED NEUTROPHIL # 5.9 TH/MM3 (1.8-7.7); BASOPHIL % 0.5 % (0.0-2.0); EOSINOPHIL # 0.3 TH/MM3 (0-0.4); EOSINOPHIL % 3.8 % (0.0-4.0); HEMATOCRIT 36.3 % (39.0-51.0); HEMO FLAGS DIFF FINAL; LYMPH % 13.4 % (9.0-44.0); MEAN CELL VOLUME 100.5 FL (80.0-100.0); MEAN CORPUSCULAR HEMOGLOBIN 33.8 PG (27.0-34.0); MEAN CORPUSCULAR HGB CONC 33.7 % (32.0-36.0); MONO % 6.6 % (0.0-8.0); NEUT % 75.7 % (16.0-70.0); PLATELET COUNT 127 TH/MM3 (150-450); RED BLOOD COUNT 3.61 MIL/MM3 (4.50-5.90); RED CELL DISTRIBUTION WIDTH 13.2 % (11.6-17.2); WHITE BLOOD COUNT 7.7 TH/MM3 (4.0-11.0)
[2017-03-16 12:33] LABS: POTASSIUM 3.7 MEQ/L (3.5-5.1)
[2017-03-16 13:05] VITALS: BP 175/105; PULSE 75; RESP 19; TEMP 96.5; O2SAT 100
--- NOTE | 2017-03-16 13:16 | PD.POD ---
Subjective Pain score: 3 Remarks Doing well Past Med/Surg/Social History Social History Smoking Status: Former Smoker Objective Vital Signs Vital Signs Date Time Temp Pulse Resp B/P (MAP) Pulse Ox O2 Delivery O2 Flow Rate FiO2 03/16/17 13:05 96.5 75 19 175/105 (128) 100 03/16/17 08:00 97.9 75 18 142/93 (109) 03/16/17 00:00 97.3 78 20 137/82 (100) 95 03/15/17 20:00 97.0 90 20 142/96 (111) 99 03/15/17 16:00 97.1 80 20 125/85 (98) 97 Coded Allergies: codeine (Unverified Adverse Reaction, Intermediate, GI UPSET, 03/14/17) Medications and IVs Administered Medications Medications (Trade) Dose Ordered Sig/Deanna Route PRN Reason Start Time Stop Time Status Last Admin Dose Admin Sodium Chloride 1,000 ml @ 75 mls/hr [id number] IV 03/14/17 11:52 03/15/17 15:51 Sodium Chloride (NS Flush) 2 ml BID IV FLUSH 03/14/17 21:00 03/16/17 08:51 Piperacillin Sod/ Tazobactam Sod 100 ml @ 200 mls/hr Q6H IV 03/14/17 19:00 03/16/17 12:50 Clonidine (Catapres) 0.1 mg Q6H PRN PO SBP> OR = 180, DBP> OR = 100 03/14/17 17:15 03/14/17 23:21 Nifedipine (Procardia Xl) 30 mg DAILY PO 03/15/17 09:00 03/16/17 08:51 Oxycodone HCl (Roxicodone) 10 mg Q4H PRN PO PAIN SCALE 7 TO 10 03/15/17 17:30 03/16/17 10:48 Other Results Laboratory Tests Test 03/14/17 17:30 03/15/17 11:25 03/16/17 12:10 Erythrocyte Sedimentation Rate 31 mm/hr White Blood Count 7.0 TH/MM3 7.7 TH/MM3 Red Blood Count 3.72 MIL/MM3 3.61 MIL/MM3 Hemoglobin 13.1 GM/DL 12.2 GM/DL Hematocrit 37.7 % 36.3 % Mean Corpuscular Volume 101.1 FL 100.5 FL Mean Corpuscular Hemoglobin 35.2 PG 33.8 PG Mean Corpuscular Hemoglobin Concent 34.8 % 33.7 % Red Cell Distribution Width 13.4 % 13.2 % Platelet Count 126 TH/MM3 127 TH/MM3 Mean Platelet Volume 8.3 FL 8.2 FL Neutrophils (%) (Auto) 69.0 % 75.7 % Lymphocytes (%) (Auto) 16.2 % 13.4 % Monocytes (%) (Auto) 7.3 % 6.6 % Eosinophils (%) (Auto) 3.2 % 3.8 % Basophils (%) (Auto) 4.3 % 0.5 % Neutrophils # (Auto) 4.9 TH/MM3 5.9 TH/MM3 Lymphocytes # (Auto) 1.1 TH/MM3 1.0 TH/MM3 Monocytes # (Auto) 0.5 TH/MM3 0.5 TH/MM3 Eosinophils # (Auto) 0.2 TH/MM3 0.3 TH/MM3 Basophils # (Auto) 0.3 TH/MM3 0.0 TH/MM3 CBC Comment DIFF FINAL DIFF FINAL Differential Comment Laboratory Tests Test 03/14/17 17:30 03/15/17 11:25 03/15/17 18:42 03/16/17 12:10 Total Creatine Kinase 35 U/L C-Reactive Protein 0.60 MG/DL Lipase 658 U/L Thyroid Stimulating Hormone 3rd Gen 2.920 uIU/ML Blood Urea Nitrogen 16 MG/DL 16 MG/DL Creatinine 1.00 MG/DL 1.10 MG/DL Random Glucose 96 MG/DL 88 MG/DL Total Protein 7.2 GM/DL 7.9 GM/DL Albumin 2.0 GM/DL 2.2 GM/DL Calcium Level 7.8 MG/DL 7.4 MG/DL Alkaline Phosphatase 98 U/L 118 U/L Aspartate Amino Transf (AST/SGOT) 198 U/L 214 U/L Alanine Aminotransferase (ALT/SGPT) 108 U/L 119 U/L Total Bilirubin 6.2 MG/DL 6.6 MG/DL Sodium Level 136 MEQ/L 133 MEQ/L 134 MEQ/L Potassium Level 4.0 MEQ/L 3.9 MEQ/L 3.7 MEQ/L Chloride Level 105 MEQ/L 102 MEQ/L 103 MEQ/L Carbon Dioxide Level 22.3 MEQ/L 23.7 MEQ/L Anion Gap 9 MEQ/L 7 MEQ/L Estimat Glomerular Filtration Rate 77 ML/MIN 69 ML/MIN Magnesium Level 1.9 MG/DL Protein Corrected Calcium MG/DL Microbiology Date/Time Source Procedure Growth Status 03/14/17 10:35 Blood Peripheral Aerobic Blood Culture - Preliminary NO GROWTH IN 2 DAYS Resulted 03/14/17 10:35 Blood Peripheral Anaerobic Blood Culture - Preliminary NO GROWTH IN 2 DAYS Resulted 03/14/17 10:30 Blood Peripheral Aerobic Blood Culture - Preliminary NO GROWTH IN 2 DAYS Resulted 03/14/17 10:30 Blood Peripheral Anaerobic Blood Culture - Preliminary NO GROWTH IN 2 DAYS Resulted 03/15/17 09:12 Abscess Foot Fungal Smear - Final NO FUNGAL ELEMENTS SEEN. Resulted 03/15/17 09:12 Abscess Foot Fungal Culture Pending Resulted 03/15/17 09:12 Abscess Foot Acid Fast Stain Pending Received 03/15/17 09:12 Abscess Foot Mycobacterial Culture Pending Received 03/15/17 09:12 Abscess Foot Gram Stain - Final Resulted 03/15/17 09:12 Abscess Foot Wound Culture Pending Resulted 03/15/17 09:12 Abscess Foot Fungal Smear - Final NO FUNGAL ELEMENTS SEEN. Resulted 03/15/17 09:12 Abscess Foot Fungal Culture Pending Resulted 03/15/17 09:12 Abscess Foot Acid Fast Stain Pending Received 03/15/17 09:12 Abscess Foot Mycobacterial Culture Pending Received 03/15/17 09:12 Abscess Foot Gram Stain - Final Resulted 03/15/17 09:12 Abscess Foot Wound Culture Pending Resulted Objective Remarks Bone path and final cx pending. Physical Exam Remarks Right hallux plantar incision coapted medial hallux wound with redness and drainage, toe is warm. Left foot absent 3rd digit, incision well coapted with redness of the dorsum of the foot, foot is warm. Assessment & Plan A/P Right hallux abscess om Left foot abscess OM 3rd digit and metatarsal. SP I and D BL left foot 3rd digit amp and metatarsal resection per Dr Valdez Awaiting clinical improvement as well as path/micro, continue bed rest, FU weds , recommend ID consult. Ariel Moore DPM Mar 16, 2017 13:16
[2017-03-16 13:37] LABS: BICARBONATE 25.1 MEQ/L (21.0-32.0); TOTAL BILIRUBIN ADULT 6.9 MG/DL (0.2-1.0)
[2017-03-16 13:42] LABS: CALCIUM-PROTEIN CORRECTED 7.4 MG/DL (8.5-10.1)
[2017-03-16 18:03] VITALS: BP 140/96; PULSE 79; RESP 19; TEMP 97.3; O2SAT 98
[2017-03-16 20:00] VITALS: BP 154/93; PULSE 81; RESP 20; TEMP 99; O2SAT 97
--- NOTE | 2017-03-16 23:25 | HHI.GIFU ---
GI Follow-up Note Consult Follow-up patient was seen and examined full note dictated. Entered by: Angelica Purvis MD Mar 16, 2017 23:25
[2017-03-17] VITALS: BP 145/93; PULSE 78; RESP 18; TEMP 97.8; O2SAT 97
[2017-03-17] MEDS: PIPERACIL-TAZO 4.5 GM PREMIX 100 ML IV SCH ×2 (01:00→07:50)
[2017-03-17] MEDS: SODIUM CHLOR 0.45% 1000 ML INJ 1,000 ML IV SCH ×2 (04:42→19:22)
[2017-03-17] MEDS: NIFEdipine 30 MG SUSTAINED RELEASE TAB PO SCH (07:49)
[2017-03-17] MEDS: SODIUM CHLORIDE 0.9% FLUSH 10 ML FLUSH IV FLUSH SCH ×2 (07:50→20:01)
[2017-03-17 08:00] VITALS: BP 162/103; PULSE 68; RESP 20; TEMP 96.2; O2SAT 98
--- NOTE | 2017-03-17 08:38 | PD.CONS ---
History of Present Illness Service Infectious disease Consult Requested By Dr Tommie Lantigua Reason for Consult Bilateral foot cellulitis Primary Care Physician No Primary Care Physician Diagnoses: (1) Osteomyelitis of foot, left, acute (2) Osteomyelitis of foot, right, acute (3) Cellulitis (4) Puncture wound of foot History of Present Illness 56-year-old male with no reported past medical history, who presents with having stepped on nails in bilateral feet 2 weeks ago. Came in to ED on and Podiatry was not consulted regarding this patient. He had fever at that visit and redness/swelling with pain. Reports continued worsening pain in bilateral feet. He reports fevers up to 101 Fahrenheit. Patient was given rx for Cipro and clindamycin when seen in ED at previous visit. He denies any fevers, chills, chest pain, shortness of breath, constipation, diarrhea. Past Family Social History Allergies: Coded Allergies: codeine (Unverified Adverse Reaction, Intermediate, GI UPSET, 03/14/17) Physical Exam Vital Signs Vital Signs Date Time Temp Pulse Resp B/P (MAP) Pulse Ox O2 Delivery O2 Flow Rate FiO2 03/17/17 08:00 96.2 68 20 162/103 (122) 98 03/17/17 00:00 97.8 78 18 145/93 (110) 97 03/16/17 20:00 99.0 81 20 154/93 (113) 97 03/16/17 18:03 97.3 79 19 140/96 (111) 98 03/16/17 13:05 96.5 75 19 175/105 (128) 100 Physical Exam GENERAL: This is a well-nourished, well-developed patient, in no apparent distress. SKIN: No rashes, ecchymoses or lesions. Cool and dry. HEAD: Atraumatic. Normocephalic. No temporal or scalp tenderness. EYES: Pupils equal round and reactive. Extraocular motions intact. No scleral icterus. No injection or drainage. ENT: Nose without bleeding, purulent drainage or septal hematoma. Throat without erythema, tonsillar hypertrophy or exudate. Uvula midline. Airway patent. NECK: Trachea midline. No JVD or lymphadenopathy. Supple, nontender, no meningeal signs. CARDIOVASCULAR: Regular rate and rhythm without murmurs, gallops, or rubs. RESPIRATORY: Clear to auscultation. Breath sounds equal bilaterally. No wheezes , rales, or rhonchi. GASTROINTESTINAL: Abdomen soft, non-tender, nondistended. No hepato-splenomegaly , or palpable masses. No guarding. MUSCULOSKELETAL: Extremities without clubbing, cyanosis, or edema. No joint tenderness, effusion, or edema noted. No calf tenderness. Negative Homans sign bilaterally. NEUROLOGICAL: Awake and alert. Cranial nerves II through XII intact. Motor and sensory grossly within normal limits. Five out of 5 muscle strength in all muscle groups. Normal speech. Laboratory Laboratory Tests Test 03/16/17 12:10 White Blood Count 7.7 Red Blood Count 3.61 Hemoglobin 12.2 Hematocrit 36.3 Mean Corpuscular Volume 100.5 Mean Corpuscular Hemoglobin 33.8 Mean Corpuscular Hemoglobin Concent 33.7 Red Cell Distribution Width 13.2 Platelet Count 127 Mean Platelet Volume 8.2 Neutrophils (%) (Auto) 75.7 Lymphocytes (%) (Auto) 13.4 Monocytes (%) (Auto) 6.6 Eosinophils (%) (Auto) 3.8 Basophils (%) (Auto) 0.5 Neutrophils # (Auto) 5.9 Lymphocytes # (Auto) 1.0 Monocytes # (Auto) 0.5 Eosinophils # (Auto) 0.3 Basophils # (Auto) 0.0 CBC Comment DIFF FINAL Differential Comment Blood Urea Nitrogen 15 Creatinine 0.97 Random Glucose 100 Total Protein 6.9 Albumin 1.9 Calcium Level 7.3 Alkaline Phosphatase 100 Aspartate Amino Transf (AST/SGOT) 196 Alanine Aminotransferase (ALT/SGPT) 110 Total Bilirubin 6.9 Sodium Level 134 Potassium Level 3.7 Chloride Level 103 Carbon Dioxide Level 25.1 Anion Gap 6 Estimat Glomerular Filtration Rate 79 Protein Corrected Calcium 7.4 Date/Time Source Procedure Growth Status 03/14/17 10:35 Blood Peripheral Aerobic Blood Culture - Preliminary NO GROWTH IN 2 DAYS Resulted 03/14/17 10:35 Blood Peripheral Anaerobic Blood Culture - Preliminary NO GROWTH IN 2 DAYS Resulted 03/15/17 09:12 Abscess Foot Fungal Smear - Final NO FUNGAL ELEMENTS SEEN. Resulted 03/15/17 09:12 Abscess Foot Fungal Culture Pending Resulted Result Diagram: 03/16/17 1210 03/16/17 1210 Assessment and Plan Problem List: (1) Osteomyelitis of foot, left, acute ICD Codes: M86.172 - Other acute osteomyelitis, left ankle and foot Plan: S/p surgical debridement Culture growing Staph aureus Continue IV Vancomycin Stop IV Zosyn Start Cefazolin 2 g IV q8hrs (2) Osteomyelitis of foot, right, acute ICD Codes: M86.171 - Other acute osteomyelitis, right ankle and foot (3) Puncture wound of foot ICD Codes: S91.339A - Puncture wound without foreign body, unspecified foot, initial encounter Status: Acute Problem Qualifiers (1) Cellulitis: Qualified Codes: L03.115 - Cellulitis of right lower limb (2) Puncture wound of foot: Qualified Codes: S91.332A - Puncture wound without foreign body, left foot, initial encounter Jennifer Rosenbaum MD Mar 17, 2017 08:38
[2017-03-17] MEDS: ceFAZolin 2 GM PREMIX 50 ML IV SCH ×2 (09:28→18:50)
[2017-03-17 12:00] VITALS: BP 156/98; PULSE 74; RESP 18; TEMP 97.7; O2SAT 94
--- NOTE | 2017-03-17 12:07 | HHI.PR ---
Subjective Remarks Follow up for bilateral foot infection. Patient is currently doing well. No fever, chills. Objective Vitals Vital Signs Date Time Temp Pulse Resp B/P (MAP) Pulse Ox O2 Delivery O2 Flow Rate FiO2 03/17/17 08:00 96.2 68 20 162/103 (122) 98 03/17/17 00:00 97.8 78 18 145/93 (110) 97 03/16/17 20:00 99.0 81 20 154/93 (113) 97 03/16/17 18:03 97.3 79 19 140/96 (111) 98 03/16/17 13:05 96.5 75 19 175/105 (128) 100 I/O 03/16/17 03/16/17 03/16/17 03/17/17 03/17/17 03/17/17 07:00 15:00 23:00 07:00 15:00 23:00 Intake Total 1420 ml 200 ml 600 ml Output Total 1200 ml 750 ml 850 ml Balance 220 ml 200 ml -150 ml -850 ml Intake Oral 720 ml IV Total 700 ml 200 ml 600 ml Output Urine Total 1200 ml 750 ml 850 ml # Bowel Movements 1 1 Result Diagram: 03/16/17 1210 03/16/17 1210 Imaging Last Impressions Foot X-Ray 03/15/17 0000 Signed Impressions: Service Date/Time: Wednesday, March 15, 2017 10:20 - CONCLUSION: Stable exam.. Francesca Jerry MD Liver Ultrasound 03/14/17 0000 Signed Impressions: Service Date/Time: Tuesday, March 14, 2017 17:29 - CONCLUSION: The liver appears mildly enlarged in size and heterogeneous in echotexture. No evidence of mass or biliary obstruction. The pancreas appears increased in echogenicity and somewhat ill-defined. This may represent findings secondary to acute pancreatitis. Correlate with patient's laboratory values. Francesca Jerry MD Foot MRI 03/14/17 0000 Signed Impressions: Service Date/Time: Tuesday, March 14, 2017 14:26 - CONCLUSION: 1. Diffuse subcutaneous swelling and enhancement along the plantar aspect of the right mid foot predominantly in the region of the 1st, 2nd and 3rd metatarsals but also extending between the 1st and 2nd metatarsal towards the dorsal surface of the right foot consistent with diffuse cellulitis. 2. Small subcutaneous abscess collections along the plantar aspect of the right mid foot with the largest measuring 11 x 6 mm. 3. Subtle enhancement of the 1st proximal phalanx raising the possibility of osteomyelitis of this bone. Thor Lock MD Objective Remarks GENERAL: Alert, NAD. SKIN: Warm and dry. HEAD: Normocephalic. EYES: No scleral icterus. No injection or drainage. NECK: Supple, trachea midline. No JVD or lymphadenopathy. CARDIOVASCULAR: Regular rate and rhythm without murmurs, gallops, or rubs. RESPIRATORY: Breath sounds equal bilaterally. No accessory muscle use. GASTROINTESTINAL: Abdomen soft, non-tender, nondistended. MUSCULOSKELETAL: No cyanosis, or edema. Feet wrapped. BACK: Nontender without obvious deformity. No CVA tenderness. Procedures 03/15/2017 Procedure: 1. I&D abscess R hallux with bone biopsy R proximal phalanx, packed open 2. I&D L foot with partial L 3rd ray amputation and bone biopsy L residual 3rd metatarsal, packed open A/P Assessment and Plan Mr. Leon, 56 was admitted on 03/14/2017 due to bilateral foot infection. He sustained a nail injury about 2 weeks prior to this admission. He underwent I&D per podiatry on 03/15/2017. - Bilateral foot abscess - Acute osteomyelitis of left foot. - Podiatry, ID following. - s/p I&D. - Continue Vancomycin and Cefazolin per ID. - Cx is growing MSSA. Patient will likely be okay with Cefazolin only. - Accelerated hypertension. - Systolic blood pressure up to 220s on admission - Continue Nifedipine 30mg Qday. Clonidine PRN. - Transaminitis - trending down. GI consulted. Hep C reactive. Full code. SCDs. Consider pharmacological DVT prophylaxis If okay with podiatry. Oscar Wheeler DO Mar 17, 2017 12:07
[2017-03-17 16:00] VITALS: BP 153/103; PULSE 78; RESP 20; TEMP 97.2; O2SAT 97
[2017-03-17] MEDS: VANCOMYCIN INJ 2,000 MG in SODIUM CHLORID 0.9% 500 ML INJ 500 ML IV SCH (16:11)
--- NOTE | 2017-03-17 19:31 | MB ---
cc: MARIUSZ GUIDRY,RJ Dominguez MD DATE OF CONSULTATION: 03/17/2017 DATE OF : [address] Lantigua REASON FOR CONSULTATION: Elevated liver function tests. Thank you for the consultation. HISTORY OF PRESENT ILLNESS: The patient is a pleasant 56 year-old gentleman who apparently stepped on a nail two weeks ago and ended up with cellulitis and infection, came in with fever, and he has been treated with Cipro and clindamycin. The patient denied any symptoms except he was found to have elevated liver function tests and also Hepatitis C. He denies any GI workup in the past and he is not aware that he had tetanus in the past. REVIEW OF SYSTEMS All 12-point negative except HPI. PAST MEDICAL HISTORY Significant for left eye surgery. No other medical problems except newly diagnosed Hepatitis C ALLERGIES CODEINE FAMILY HISTORY Significant for Alzheimer's SOCIAL HISTORY The patient quit smoking 12 years ago. He drinks hard liquor every day until two weeks ago. PHYSICAL EXAMINATION Alert, oriented, no acute distress. Vital signs stable. HEENT: Pupils are round, reactive to light. Neck: Supple. Chest: Clear. Morbid obesity. Cardiac: Regular rate and rhythm. Abdomen: Soft, nondistended. Positive bowel sounds. Extremities: The patient has a dressing on the right leg with edema. IMAGING STUDIES Liver ultrasound showed mildly enlarged and heterogenous with echotexture, no mass or biliary obstruction. The pancreas appeared to be increased with echogenicity, questionable acute pancreatitis. LABORATORY DATA White count 7.7, hemoglobin 12.2, platelets 127, INR 1.2. Chemistry: Sodium 134, BUN 15, creatinine 0.97, AST 196, gradually going down. ALT 110. Alk phos 100, total bilirubin 6.9, lipase 658. Serology: The patient has Hep C reactive, Hepatitis C RNA1 pending. ASSESSMENT AND PLAN: 56-year-old male who has a history of significant alcohol use most likely this is the reason for is elevated liver function test with a combination with possible hepatitis C. I recommended to the patient abstinence of alcohol. Will continue following the result for the Hepatitis C. He will need treatment as an outpatient if it is positive. Also we will monitor his labs. Could be possibility of drug induced hepatitis, but less likely especially that the AST/ALT is trending down. We will monitor the labs and we will follow up with you. If the labs continue to be elevated, we will expand the workup to rule out other etiology such as autoimmune disease, hemachromatosis or other etiology. MD EDUARDO Garcia/DREW /6:18 PM /7:11 PM
[2017-03-17 20:00] VITALS: BP 154/105; PULSE 75; RESP 18; TEMP 97.6; O2SAT 97
[2017-03-17] MEDS: cloNIDine HCL 0.1 MG TAB PO PRN (20:01)
[2017-03-18] VITALS: BP 142/99; PULSE 80; RESP 18; TEMP 98.7; O2SAT 98
[2017-03-18] MEDS: ceFAZolin 2 GM PREMIX 50 ML IV SCH ×4 (01:57→23:27)
[2017-03-18 08:00] VITALS: BP 152/94; PULSE 77; RESP 20; TEMP 97.3; O2SAT 99
[2017-03-18] MEDS: NIFEdipine 30 MG SUSTAINED RELEASE TAB PO SCH (09:07)
[2017-03-18] MEDS: SODIUM CHLORIDE 0.9% FLUSH 10 ML FLUSH IV FLUSH SCH ×2 (09:08→21:04)
[2017-03-18] MEDS: SODIUM CHLOR 0.45% 1000 ML INJ 1,000 ML IV SCH ×2 (09:09→19:49)
--- NOTE | 2017-03-18 09:29 | PD.POD ---
Subjective Pain score: 3 Remarks Doing well Past Med/Surg/Social History Social History Smoking Status: Former Smoker Objective Vital Signs Vital Signs Date Time Temp Pulse Resp B/P (MAP) Pulse Ox O2 Delivery O2 Flow Rate FiO2 03/18/17 08:00 97.3 77 20 152/94 (113) 99 03/18/17 00:00 98.7 80 18 142/99 (113) 98 03/17/17 20:00 97.6 75 18 154/105 (121) 97 03/17/17 16:00 97.2 78 20 153/103 (120) 97 03/17/17 12:00 97.7 74 18 156/98 (117) 94 Coded Allergies: codeine (Unverified Adverse Reaction, Intermediate, GI UPSET, 03/14/17) Medications and IVs Administered Medications Medications (Trade) Dose Ordered Sig/Deanna Route PRN Reason Start Time Stop Time Status Last Admin Dose Admin Sodium Chloride 1,000 ml @ 75 mls/hr [id number] IV 03/14/17 11:52 03/15/17 15:51 Sodium Chloride (NS Flush) 2 ml BID IV FLUSH 03/14/17 21:00 03/18/17 09:08 Clonidine (Catapres) 0.1 mg Q6H PRN PO SBP> OR = 180, DBP> OR = 100 03/14/17 17:15 03/17/17 20:01 Nifedipine (Procardia Xl) 30 mg DAILY PO 03/15/17 09:00 03/18/17 09:07 Oxycodone HCl (Roxicodone) 10 mg Q4H PRN PO PAIN SCALE 7 TO 10 03/15/17 17:30 03/18/17 09:07 Vancomycin HCl 2000 mg/Sodium Chloride 520 ml @ 250 mls/hr Q18H IV 03/16/17 22:00 03/17/17 16:11 Cefazolin Sodium/ Dextrose 50 ml @ 100 mls/hr Q8H IV 03/17/17 09:00 03/18/17 09:07 Other Results Laboratory Tests Test 03/16/17 12:10 White Blood Count 7.7 TH/MM3 Red Blood Count 3.61 MIL/MM3 Hemoglobin 12.2 GM/DL Hematocrit 36.3 % Mean Corpuscular Volume 100.5 FL Mean Corpuscular Hemoglobin 33.8 PG Mean Corpuscular Hemoglobin Concent 33.7 % Red Cell Distribution Width 13.2 % Platelet Count 127 TH/MM3 Mean Platelet Volume 8.2 FL Neutrophils (%) (Auto) 75.7 % Lymphocytes (%) (Auto) 13.4 % Monocytes (%) (Auto) 6.6 % Eosinophils (%) (Auto) 3.8 % Basophils (%) (Auto) 0.5 % Neutrophils # (Auto) 5.9 TH/MM3 Lymphocytes # (Auto) 1.0 TH/MM3 Monocytes # (Auto) 0.5 TH/MM3 Eosinophils # (Auto) 0.3 TH/MM3 Basophils # (Auto) 0.0 TH/MM3 CBC Comment DIFF FINAL Differential Comment Laboratory Tests Test 03/16/17 12:10 Blood Urea Nitrogen 15 MG/DL Creatinine 0.97 MG/DL Random Glucose 100 MG/DL Total Protein 6.9 GM/DL Albumin 1.9 GM/DL Calcium Level 7.3 MG/DL Alkaline Phosphatase 100 U/L Aspartate Amino Transf (AST/SGOT) 196 U/L Alanine Aminotransferase (ALT/SGPT) 110 U/L Total Bilirubin 6.9 MG/DL Sodium Level 134 MEQ/L Potassium Level 3.7 MEQ/L Chloride Level 103 MEQ/L Carbon Dioxide Level 25.1 MEQ/L Anion Gap 6 MEQ/L Estimat Glomerular Filtration Rate 79 ML/MIN Protein Corrected Calcium 7.4 MG/DL Objective Remarks Bone path pending. Cx Staph non MRSA see report LINDA's Physical Exam Remarks Right hallux plantar incision coapted medial hallux wound with redness and drainage, toe is warm. Left foot absent 3rd digit, incision open with necrosis at the edges, with redness of the dorsum of the foot, foot is warm. Assessment & Plan A/P Right hallux abscess om Left foot abscess OM 3rd digit and metatarsal. SP I and D BL left foot 3rd digit amp and metatarsal resection per Dr. Valdez Appears to be necrosing the left foot dorsal incision, may need revision in the next few days with left foot wound debridement with woundvac. Ariel Moore DPM Mar 18, 2017 09:28
[2017-03-18] MEDS ORDERED: PHARMACY ORDERED LAB ONE (09:45)
[2017-03-18] MEDS: VANCOMYCIN INJ 2,000 MG in SODIUM CHLORID 0.9% 500 ML INJ 500 ML IV SCH (10:45)
[2017-03-18 12:00] VITALS: BP 161/88; PULSE 81; RESP 20; TEMP 98.6; O2SAT 99
[2017-03-18 16:00] VITALS: BP 143/83; PULSE 80; RESP 18; TEMP 98.2; O2SAT 96
--- NOTE | 2017-03-18 16:51 | HHI.PR ---
Subjective Remarks Patient denies any nausea vomiting, says he feels okay. Objective Vital Signs Date Time Temp Pulse Resp B/P (MAP) Pulse Ox O2 Delivery O2 Flow Rate FiO2 03/18/17 12:00 98.6 81 20 161/88 (112) 99 03/18/17 08:00 97.3 77 20 152/94 (113) 99 03/18/17 00:00 98.7 80 18 142/99 (113) 98 03/17/17 20:00 97.6 75 18 154/105 (121) 97 I/O 03/17/17 03/17/17 03/17/17 03/18/17 03/18/17 03/18/17 07:00 15:00 23:00 07:00 15:00 23:00 Intake Total 600 ml 1125 ml 570 ml 50 ml 550 ml Output Total 750 ml 1150 ml 350 ml 250 ml Balance -150 ml -25 ml 570 ml -300 ml 300 ml Intake Oral 975 ml IV Total 600 ml 150 ml 570 ml 50 ml 550 ml Output Urine Total 750 ml 1150 ml 350 ml 250 ml # Bowel Movements 1 1 Result Diagram: 03/16/17 1210 03/16/17 1210 A/P Assessment and Plan Mr. Leon, 56 was admitted on 03/14/2017 due to bilateral foot infection. He sustained a nail injury about 2 weeks prior to this admission. He underwent I&D per podiatry on 03/15/2017. - Bilateral foot abscess - Acute osteomyelitis of left foot. - Podiatry, ID following. possible 2nd surgery in next 2 days or so per podiatry. - s/p I&D. - Continue Vancomycin and Cefazolin per ID. - Cx is growing MSSA. Patient will likely be okay with Cefazolin only. - Accelerated hypertension - improved. - Systolic blood pressure up to 220s on admission - Continue Nifedipine 30mg Qday. Clonidine PRN. - Transaminitis - trending down. Reviewed that pt is + for Hep C. No acute interventions needed at this time. Full code. SCDs. Consider pharmacological DVT prophylaxis If okay with podiatry. Talat Keith MD Mar 18, 2017 16:51
--- NOTE | 2017-03-18 18:09 | HHI.IDPN ---
Subjective Subjective Remarks ID FU DR DE LA O PT FEELS BETTER POST OP NPO TONIGHT FOR POSSIBLE LEFT FOOT REPEAT DEBRIDEMENT ? WOUND VAC PLACEMENT IN THE AM CULTURE + MSSA Antibiotics VANCOMYCIN ANCEF Allergies: Coded Allergies: codeine (Unverified Adverse Reaction, Intermediate, GI UPSET, 03/14/17) Review of Systems Constitutional Constitutional Remarks REVIEW OF SYSTEM 12 SYSTEM DONE NEGATIVE OTHER THAN BILATERAL FOOT PAIN WITH SWELLING Objective . Vital Signs Date Time Temp Pulse Resp B/P (MAP) Pulse Ox O2 Delivery O2 Flow Rate FiO2 03/18/17 12:00 98.6 81 20 161/88 (112) 99 03/18/17 08:00 97.3 77 20 152/94 (113) 99 03/18/17 00:00 98.7 80 18 142/99 (113) 98 03/17/17 20:00 97.6 75 18 154/105 (121) 97 03/18/17 03/18/17 03/19/17 15:00 23:00 07:00 Intake Total 550 ml 50 ml Output Total 250 ml Balance 300 ml 50 ml IV Total 550 ml 50 ml Output Urine Total 250 ml Physical Exam AWAKE OX3 PERRL NS CHEST CTA CARDIAC RRR ABD ROUND SOFT ACTIVE EXT. BOTH FEET HAVE SURGICAL DRSG DONE. GOOD ROM. NO DRAINAGE THE TOP OF THE LEFT FOOT IS LESS EDEMA AND REDNESS. Assessment & Plan Diagnosis: (1) Cellulitis ICD Codes: L03.90 - Cellulitis, unspecified Status: Acute (2) Puncture wound of foot ICD Codes: S91.339A - Puncture wound without foreign body, unspecified foot, initial encounter Status: Acute Plan: ULTURE + MSSA. PLAN TO STOP VANCOMYCIN MAY NEED IV ABX ON DC WILL FU (3) Puncture wound to foot ICD Codes: S91.339A - Puncture wound without foreign body, unspecified foot, initial encounter Status: Acute (4) Cellulitis of foot, left ICD Codes: L03.116 - Cellulitis of left lower limb Status: Acute (5) Osteomyelitis of foot, left, acute ICD Codes: M86.172 - Other acute osteomyelitis, left ankle and foot (6) Osteomyelitis of foot, right, acute ICD Codes: M86.171 - Other acute osteomyelitis, right ankle and foot Problem Qualifiers (1) Cellulitis: Qualified Codes: L03.115 - Cellulitis of right lower limb (2) Puncture wound of foot: Qualified Codes: S91.332A - Puncture wound without foreign body, left foot, initial encounter (3) Puncture wound to foot: Qualified Codes: S91.331A - Puncture wound without foreign body, right foot, initial encounter Cassandra La Mar 18, 2017 18:09
--- NOTE | 2017-03-18 18:37 | HHI.GIFU ---
Subjective Remarks Patient was seen and examined, no new complaining, no abdominal pain Objective Vitals I&O Vital Signs Date Time Temp Pulse Resp B/P (MAP) Pulse Ox O2 Delivery O2 Flow Rate FiO2 03/18/17 16:00 98.2 80 18 143/83 (103) 96 03/18/17 12:00 98.6 81 20 161/88 (112) 99 03/18/17 08:00 97.3 77 20 152/94 (113) 99 03/18/17 00:00 98.7 80 18 142/99 (113) 98 03/17/17 20:00 97.6 75 18 154/105 (121) 97 I/O 03/17/17 03/17/17 03/17/17 03/18/17 03/18/17 03/18/17 07:00 15:00 23:00 07:00 15:00 23:00 Intake Total 600 ml 1125 ml 570 ml 50 ml 550 ml 50 ml Output Total 750 ml 1150 ml 350 ml 250 ml Balance -150 ml -25 ml 570 ml -300 ml 300 ml 50 ml Intake Oral 975 ml IV Total 600 ml 150 ml 570 ml 50 ml 550 ml 50 ml Output Urine Total 750 ml 1150 ml 350 ml 250 ml # Bowel Movements 1 1 Laboratory Laboratory Tests Test 03/18/17 10:30 Vancomycin Level Trough 13.4 Date/Time Source Procedure Growth Status 03/14/17 10:35 Blood Peripheral Aerobic Blood Culture - Preliminary NO GROWTH IN 4 DAYS Resulted 03/14/17 10:35 Blood Peripheral Anaerobic Blood Culture - Preliminary NO GROWTH IN 4 DAYS Resulted 03/15/17 09:12 Abscess Foot Fungal Smear - Final NO FUNGAL ELEMENTS SEEN. Resulted 03/15/17 09:12 Abscess Foot Fungal Culture Pending Resulted Physical Exam HEENT: Pupils round and reactive to light; normocephalic; atraumatic; no jaundice. Throat is clear. NECK: Neck is supple, no JVD, no lymphadenopathy. CHEST: Chest is clear to auscultation and percussion. CARDIAC: Regular rate and rhythm with no murmur gallop or rubs. ABDOMEN: Soft, nondistended, nontender; no hepatosplenomegaly; bowel sounds are present in all four quadrants. EXTREMITIES: No clubbing, cyanosis, or edema. SKIN: Normal; no rash; no jaundice. 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 Assessment and Plan Plan Patient came with infection secondary to nail penetration to both feet, currently on antibiotic. Patient was found to have elevated liver function tests most likely combination of alcohol and possible hepatitis C, HCV RNA is still pending Recommendation No alcohol Repeat liver function tests If hepatitis C positive patient will need treatment as an outpatient Angelica Campbell MD Mar 18, 2017 18:37
[2017-03-18 20:00] VITALS: BP 163/103; PULSE 79; RESP 20; TEMP 97.9; O2SAT 97
[2017-03-19] VITALS: BP 128/83; PULSE 80; RESP 20; TEMP 98.2; O2SAT 96
[2017-03-19 06:51] LABS: TOTAL BILIRUBIN ADULT 6.1 MG/DL (0.2-1.0)
[2017-03-19 07:08] LABS: INDIRECT BILIRUBIN 2.9 MG/DL (0.0-0.8)
[2017-03-19 08:00] VITALS: BP 118/79; PULSE 78; RESP 20; TEMP 97.6; O2SAT 96
--- NOTE | 2017-03-19 08:24 | PD.POD ---
Subjective Pain score: 3 Remarks Having pain this AM, understands the need for left foot surgery. Past Med/Surg/Social History Social History Smoking Status: Former Smoker Objective Vital Signs Vital Signs Date Time Temp Pulse Resp B/P (MAP) Pulse Ox O2 Delivery O2 Flow Rate FiO2 03/19/17 00:00 98.2 80 20 128/83 (98) 96 03/18/17 20:00 97.9 79 20 163/103 (123) 97 03/18/17 16:00 98.2 80 18 143/83 (103) 96 03/18/17 12:00 98.6 81 20 161/88 (112) 99 Coded Allergies: codeine (Unverified Adverse Reaction, Intermediate, GI UPSET, 03/14/17) Objective Remarks Bone path of right and left appear to have clear margins- no OM. Physical Exam Remarks Right hallux plantar incision coapted medial hallux wound with redness and drainage, toe is warm. Left foot absent 3rd digit, incision open with necrosis at the edges, with redness of the dorsum of the foot, foot is warm. Assessment & Plan A/P Right hallux abscess om Left foot abscess OM 3rd digit and metatarsal. SP I and D BL left foot 3rd digit amp and metatarsal resection per Dr. Valdez Appears to be necrosing the left foot dorsal incision, revision today left foot incision drainage debridement with wound vac application. NPO consent signed risks and benefits reviewed. Ariel Moore DPM Mar 19, 2017 08:24
[2017-03-19] MEDS ORDERED: HYDROmorphone HCL PF 1 MG/ML VIAL IV PUSH PRN (08:30)
[2017-03-19] MEDS: SODIUM CHLORIDE 0.9% FLUSH 10 ML FLUSH IV FLUSH SCH ×2 (09:32→21:00)
[2017-03-19] MEDS: NIFEdipine 30 MG SUSTAINED RELEASE TAB PO SCH (09:32)
[2017-03-19] MEDS: ceFAZolin 2 GM PREMIX 50 ML IV SCH ×2 (09:32→17:40)
[2017-03-19] MEDS ORDERED: BUPIVACAINE HCL PF 0.25% 30 ML VIAL ONE (10:59)
[2017-03-19] MEDS ORDERED: NEOMYCIN/POLYMYXIN 1 ML G.U. IRRIGANT ONE (10:59)
[2017-03-19] MEDS ORDERED: METOCLOPRAMIDE HCL 10 MG/2 ML VIAL ONE (11:07)
[2017-03-19] MEDS ORDERED: DEXAMETHASONE SOD PHOS 4 MG/ML VIAL ONE (11:07)
[2017-03-19] MEDS ORDERED: FAMOTIDINE 20 MG/2 ML VIAL ONE (11:07)
[2017-03-19] MEDS ORDERED: MIDAZOLAM HCL 2 MG/2 ML VIAL ONE (11:07)
[2017-03-19] MEDS: SODIUM CHLOR 0.45% 1000 ML INJ 1,000 ML IV SCH (11:52)
[2017-03-19] MEDS ORDERED: PROPOFOL 200 MG/20 ML AMP IV ONE (12:00)
--- NOTE | 2017-03-19 12:48 | HHI.PR ---
Subjective Remarks Patient seen and examined today for follow-up on bilateral foot osteomyelitis, liver enzyme elevation. Patient is in preop waiting for surgery to be performed on his feet. Discussed with gastrologist who indicates no follow-up with the patient in outpatient setting. Objective Vitals Vital Signs Date Time Temp Pulse Resp B/P (MAP) Pulse Ox O2 Delivery O2 Flow Rate FiO2 03/19/17 09:21 18 03/19/17 08:00 97.6 78 20 118/79 (92) 96 03/19/17 00:00 98.2 80 20 128/83 (98) 96 03/18/17 20:00 97.9 79 20 163/103 (123) 97 03/18/17 16:00 98.2 80 18 143/83 (103) 96 I/O 03/18/17 03/18/17 03/18/17 03/19/17 03/19/17 03/19/17 07:00 15:00 23:00 07:00 15:00 23:00 Intake Total 50 ml 550 ml 530 ml 290 ml Output Total 350 ml 250 ml 600 ml 600 ml Balance -300 ml 300 ml -70 ml -310 ml Intake Oral 480 ml 240 ml IV Total 50 ml 550 ml 50 ml 50 ml Output Urine Total 350 ml 250 ml 600 ml 600 ml # Bowel Movements 0 0 Result Diagram: 03/16/17 1210 03/16/17 1210 Objective Remarks GENERAL: Well-developed, well-nourished, in no acute distress. alert and orientated HEENT: Head is normocephalic without any lesions or masses noted. Facial features are symmetric. Eyes: Extraocular muscles are intact. Conjunctivae were clear. NECK: Supple without any masses. Trachea midline no deviation. No JVD, CARDIAC: Regular rhythm, regular rate. S1/S2 are heard. No murmurs gallops or rubs. LUNGS: Clear to auscultation bilaterally. No wheeze, rhonchi or rales. No use of accessory muscles on inspiration or expiration. ABDOMEN: Soft, nontender. Nondistended. Bowel sounds heard in all 4 quadrants. No organomegaly or masses. Negative rebound, negative guarding EXTREMITIES: No edema, pulses are equal bilaterally. No cyanosis or clubbing. Bilateral lower extremities are wrapped with Amilcar bandages. Did not look at the feet disease vertigo for surgery. NEUROLOGY: Mood and affect appear appropriate. Cranial nerves II through XII grossly intact. Moving all extremities, speech is clear Procedures 03/15/2017 Procedure: 1. I&D abscess R hallux with bone biopsy R proximal phalanx, packed open 2. I&D L foot with partial L 3rd ray amputation and bone biopsy L residual 3rd metatarsal, packed open Urinary Catheter: No Vascular Central Line Catheter: No A/P Assessment and Plan Bilateral feet cellulitis/abscess with acute osteomyelitis of the left foot next line Patient is on cefazolin Podiatry following the patient and plans on performing surgical debridement today Infectious disease following the patient Cultures are growing staph aureus which is sensitive to cefazolin Oxycodone for pain control Elevated liver enzymes, improving Continue trend liver enzymes which are trending downward Hepatitis panel was performed which that show hepatitis C, awaiting viral load Motor Overhauler did evaluate the patient and recommended outpatient follow -up at this time Accelerated hypertension, improving Nifedipine 30 mg daily Clonidine as needed DVT prevention Sequential compression devices, avoiding chemical prophylaxis secondary to surgical interventions Full code. Discharge Planning Discharge planning after surgical interventions and clear by podiatry Paras Lugo Mar 19, 2017 12:48
--- NOTE | 2017-03-19 12:54 | HHI.PR ---
Immediate Post Op Note Procedure Date: Mar 19, 2017 Pre Op Diagnosis: Left foot ulcer, infection Post Op Diagnosis: same Surgeon: Ariel Grijalva Hospitality Manager(s): scrub Procedure: Left foot incision drainage debridement delayed primary closure of wound Findings: see op dict Complications: none Specimen(s) removed: none Estimated blood loss: less 50 mL Anesthesia: General, Local Drains: Other Patient to: PACU Patient Condition: Fair Implant/Devices: SEE IMPLANT LOG (if applicable) Date/Time of Procedure: SEE SURGICAL CARE RECORD Ariel Grijalva DPM Mar 19, 2017 12:54
[2017-03-19 13:51] LABS: HCV RNA PCR LOGIU/ML 4.63 (0-1.18)
[2017-03-19 16:00] VITALS: BP 152/83; PULSE 92; RESP 18; TEMP 98.1; O2SAT 95
[2017-03-19 20:00] VITALS: BP 141/100; PULSE 86; RESP 20; TEMP 97.5; O2SAT 95
[2017-03-20] VITALS: BP 152/98; PULSE 77; RESP 18; TEMP 98.1; O2SAT 95
[2017-03-20] MEDS: ceFAZolin 2 GM PREMIX 50 ML IV SCH ×2 (01:02→08:27)
[2017-03-20] MEDS: SODIUM CHLOR 0.45% 1000 ML INJ 1,000 ML IV SCH ×2 (01:03→14:32)
[2017-03-20 08:00] VITALS: BP 152/110; PULSE 80; RESP 20; TEMP 96.5; O2SAT 95
[2017-03-20] MEDS: SODIUM CHLORIDE 0.9% FLUSH 10 ML FLUSH IV FLUSH SCH (08:28)
[2017-03-20] MEDS: NIFEdipine 30 MG SUSTAINED RELEASE TAB PO SCH (08:28)
--- NOTE | 2017-03-20 09:39 | HHI.IDPN ---
Subjective Subjective Remarks S/p debridement Feels ok No fever Antibiotics Cefazolin Lines Peripheral IV line Past Medical History Patient denies any past medical history. 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 Allergies: Coded Allergies: codeine (Unverified Adverse Reaction, Intermediate, GI UPSET, 03/14/17) Review of Systems Constitutional Constitutional Remarks No fever Objective . Vital Signs Date Time Temp Pulse Resp B/P (MAP) Pulse Ox O2 Delivery O2 Flow Rate FiO2 03/20/17 09:28 18 03/20/17 08:00 96.5 80 20 152/110 (124) 95 03/20/17 00:00 98.1 77 18 152/98 (116) 95 03/19/17 20:00 97.5 86 20 141/100 (114) 95 03/19/17 16:00 98.1 92 18 152/83 (106) 95 03/19/17 13:45 98.0 74 16 141/90 (107) 98 Room Air 03/19/17 13:30 98.0 73 16 141/80 (100) 97 Room Air 03/19/17 13:15 98.0 74 16 141/89 (106) 96 Room Air 03/19/17 13:00 98.0 69 16 132/85 (101) 98 Room Air 03/19/17 12:50 98.0 70 16 128/82 (97) 91 Room Air . Laboratory Tests Test 03/19/17 06:05 Total Bilirubin 6.1 MG/DL Direct Bilirubin 3.2 MG/DL Indirect Bilirubin 2.9 MG/DL Aspartate Amino Transf (AST/SGOT) 164 U/L Alanine Aminotransferase (ALT/SGPT) 85 U/L Alkaline Phosphatase 99 U/L Total Protein 6.7 GM/DL Albumin 1.8 GM/DL Physical Exam AWAKE OX3 PERRL NS CHEST CTA CARDIAC RRR ABD ROUND SOFT ACTIVE EXT. BOTH FEET HAVE SURGICAL DRSG DONE. GOOD ROM. NO DRAINAGE No surrounding cellulitis Assessment & Plan Diagnosis: (1) Osteomyelitis of foot, left, acute ICD Codes: M86.172 - Other acute osteomyelitis, left ankle and foot Plan: S/p surgical debridement Culture growing Staph aureus- MSSA Continue Cefazolin 2 g IV q8hrs When ready for discharge - he can do Ceftriaxone 2 IV daily to complete a 3 week course of IV antibiotics (2) Osteomyelitis of foot, right, acute ICD Codes: M86.171 - Other acute osteomyelitis, right ankle and foot (3) Hepatitis C without hepatic coma ICD Codes: B19.20 - Unspecified viral hepatitis C without hepatic coma Status: Chronic Plan: Patient informed that he does have Hep C and should follow up as a outpatient for treatment Jennifer Rosenbaum MD Mar 20, 2017 09:39
[2017-03-20 12:00] VITALS: BP 170/90; PULSE 87; RESP 18; TEMP 97.1; O2SAT 97
--- NOTE | 2017-03-20 12:07 | HHI.DCPOC ---
Discharge Care Plan Diagnosis: (1) Cellulitis of foot, left (2) Cellulitis Goals to Promote Your Health * To prevent worsening of your condition and complications * To maintain your health at the optimal level Directions to Meet Your Goals Take your medications as prescribed Follow your dietary instruction Follow activity as directed Keep your appointments as scheduled Take your immunizations and boosters as scheduled If your symptoms worsen call your PCP, if no PCP go to Urgent Care Center or Emergency Room Smoking is Dangerous to Your Health. Avoid second hand smoke Call the 24-hour hour crisis hotline for domestic abuse at Paras Lugo Mar 20, 2017 12:07
--- NOTE | 2017-03-20 12:07 | HHI.FF ---
Infusion Therapy Location of Infusion Therapy: Ambulatory Infusion Therapy Order Patient Information Patient Weight 126.2 kg Diagnosis: (1) Cellulitis (2) Osteomyelitis of foot, left, acute (3) Osteomyelitis of foot, right, acute Coded Allergies: codeine (Unverified Adverse Reaction, Intermediate, GI UPSET, 03/14/17) Administer Medication Ceftriaxone 2 grams IV q 24 hours Stop Treatment: Apr 09, 2017 Additional Information Venous access: PICC Line Additional Instructions [x] Peripheral flush and dressing changes per protocol [x] Implanted port and central garment liner: * Implanted port: 10 ml Normal Saline followed by 5 ml Heparin 100 units/ml Heparin flush after each use and monthly to maintain. [] May leave port accessed during therapy. [] May leave peripheral site accessed for duration of therapy. [x] If patient has SOB or respiratory distress, check oxygen saturation. If less than 90% or clinical signs of respiratory distress, administer oxygen at 2 L/min. via nasal cannula and notify physician. [x] Anaphylaxis/Reaction orders: * Stop infusion. * Keep IV line open with saline flush. * Notify physician. * Monitor vital signs every 15 minutes until symptoms resolve. * Check Oxygen saturation; Oxygen at 2 L/min. via nasal cannula if less than 90% or clinical signs of respiratory distress. * Administer diphenhydramine (Benadryl) 25 mg IV STAT, (unless patient has received as pre-med). May repeat once, if necessary. * Solu-Cortef 250 mg IVP over 30-60 seconds, use 100 mg vials for each dissolution. * Epinephrine (1mg/1 ml) 0.3 mg subcutaneously or IVP now with any signs of respiratory distress. * Check with physician for new additional pre-med orders if patient is re- challenged or re-treated. [x] May remove PICC line when treatment complete, after confirming with Physician. [x] If the patient is admitted to the hospital, the ED, or transferred via [facility] , complete transfer form including medication reconciliation order sheet. Laboratory Tests Weekly Labs: CBC w/diff, CMP, CRP, SED Rate Paras Lugo Mar 20, 2017 12:06
--- NOTE | 2017-03-20 12:09 | PD.POD ---
Subjective Pain score: 3 Remarks Doing well ready to go home Past Med/Surg/Social History Social History Smoking Status: Former Smoker Objective Vital Signs Vital Signs Date Time Temp Pulse Resp B/P (MAP) Pulse Ox O2 Delivery O2 Flow Rate FiO2 03/20/17 09:28 18 03/20/17 08:00 96.5 80 20 152/110 (124) 95 03/20/17 00:00 98.1 77 18 152/98 (116) 95 03/19/17 20:00 97.5 86 20 141/100 (114) 95 03/19/17 16:00 98.1 92 18 152/83 (106) 95 03/19/17 13:45 98.0 74 16 141/90 (107) 98 Room Air 03/19/17 13:30 98.0 73 16 141/80 (100) 97 Room Air 03/19/17 13:15 98.0 74 16 141/89 (106) 96 Room Air 03/19/17 13:00 98.0 69 16 132/85 (101) 98 Room Air 03/19/17 12:50 98.0 70 16 128/82 (97) 91 Room Air Coded Allergies: codeine (Unverified Adverse Reaction, Intermediate, GI UPSET, 03/14/17) Objective Remarks Bone path of right and left appear to have clear margins- no OM. Physical Exam Remarks Left dorsum foot incision coapted redness noted no ischemia all toes pink Right hallux draining medial hallux incision, toe pink Good ROM foot ankle ankle BL Sensation decreased BL Assessment & Plan A/P Right hallux abscess om Left foot abscess OM 3rd digit and metatarsal. SP I and D BL left foot 3rd digit amp and metatarsal resection per Dr. Valdez SP DPC left foot. Ok to Dc home once ABX arrange FU out pt Dr Valdez x1 week, pt 's ok performing woundcare, betadine swab to wound 4x4 louis everyother day. Ariel Moore DPM Mar 20, 2017 12:09
[2017-03-20] MEDS ORDERED: NIFE1TAB86 PO (13:11)
[2017-03-20] MEDS ORDERED: OXYC-392 PO (13:11)
[2017-03-20] MEDS ORDERED: NIFEdipine 20 MG CAP PO ONE (13:15)
--- NOTE | 2017-03-20 13:17 | HHI.DS ---
Discharge Summary Admission Date Mar 14, 2017 at 11:53 Discharge Date: Mar 20, 2017 Admitting Diagnosis bilateral foot infection (1) Osteomyelitis of foot, left, acute ICD Code: M86.172 - Other acute osteomyelitis, left ankle and foot (2) Puncture wound to foot ICD Code: S91.339A - Puncture wound without foreign body, unspecified foot, initial encounter Status: Acute (3) Puncture wound of foot ICD Code: S91.339A - Puncture wound without foreign body, unspecified foot, initial encounter Status: Acute (4) Cellulitis ICD Code: L03.90 - Cellulitis, unspecified Status: Acute Procedures 03/15/2017 Procedure: 1. I&D abscess R hallux with bone biopsy R proximal phalanx, packed open 2. I&D L foot with partial L 3rd ray amputation and bone biopsy L residual 3rd metatarsal, packed open Brief History - From Admission 56-year-old male with no reported past medical history, who presents with having stepped on nails in bilateral feet 2 weeks ago. Reports continued worsening pain in bilateral feet. He reports fevers up to 101 Fahrenheit. Patient previously seen in the ER here, and had been on Cipro and clindamycin. He denies any fevers, chills, chest pain, shortness of breath, constipation, diarrhea. LFTs were ordered in the ER and elevated. When asked about his yellow appearance, he does say that his noted it today for the first time. denies any abdominal pain. He does drink about 8 ounces of vodka every day, however his most recent drink was 2 weeks ago. CBC/BMP: 03/16/17 1210 03/16/17 1210 Significant Findings Laboratory Tests Test 03/18/17 10:30 03/19/17 06:05 Vancomycin Level Trough 13.4 MCG/ML (5.0-10.0) Total Bilirubin 6.1 MG/DL (0.2-1.0) Direct Bilirubin 3.2 MG/DL (0.0-0.2) Indirect Bilirubin 2.9 MG/DL (0.0-0.8) Aspartate Amino Transf (AST/SGOT) 164 U/L (15-37) Alanine Aminotransferase (ALT/SGPT) 85 U/L (12-78) Albumin 1.8 GM/DL (3.4-5.0) Imaging Last Impressions Foot X-Ray 03/15/17 0000 Signed Impressions: Service Date/Time: Wednesday, March 15, 2017 10:20 - CONCLUSION: Stable exam.. Francesca Jerry MD Liver Ultrasound 03/14/17 0000 Signed Impressions: Service Date/Time: Tuesday, March 14, 2017 17:29 - CONCLUSION: The liver appears mildly enlarged in size and heterogeneous in echotexture. No evidence of mass or biliary obstruction. The pancreas appears increased in echogenicity and somewhat ill-defined. This may represent findings secondary to acute pancreatitis. Correlate with patient's laboratory values. Francesca Jerry MD Foot MRI 03/14/17 0000 Signed Impressions: Service Date/Time: Tuesday, March 14, 2017 14:26 - CONCLUSION: 1. Diffuse subcutaneous swelling and enhancement along the plantar aspect of the right mid foot predominantly in the region of the 1st, 2nd and 3rd metatarsals but also extending between the 1st and 2nd metatarsal towards the dorsal surface of the right foot consistent with diffuse cellulitis. 2. Small subcutaneous abscess collections along the plantar aspect of the right mid foot with the largest measuring 11 x 6 mm. 3. Subtle enhancement of the 1st proximal phalanx raising the possibility of osteomyelitis of this bone. Thor Lock MD PE at Discharge GENERAL: Well-developed, well-nourished, in no acute distress. alert and orientated HEENT: Head is normocephalic without any lesions or masses noted. Facial features are symmetric. Eyes: Extraocular muscles are intact. Conjunctivae were clear. NECK: Supple without any masses. Trachea midline no deviation. No JVD, CARDIAC: Regular rhythm, regular rate. S1/S2 are heard. No murmurs gallops or rubs. LUNGS: Clear to auscultation bilaterally. No wheeze, rhonchi or rales. No use of accessory muscles on inspiration or expiration. ABDOMEN: Soft, nontender. Nondistended. Bowel sounds heard in all 4 quadrants. No organomegaly or masses. Negative rebound, negative guarding EXTREMITIES: No edema, pulses are equal bilaterally. No cyanosis or clubbing. Bilateral lower extremities are wrapped with Amilcar bandages. Did not look at the feet disease vertigo for surgery. NEUROLOGY: Mood and affect appear appropriate. Cranial nerves II through XII grossly intact. Moving all extremities, speech is clear Hospital Course 56-year-old male who originally presented to hospital because stepping on nails on both of his feet proximal to 2 weeks prior to admission. He started developing fever and he was seen in the ER previously was started on Cipro and clindamycin. Patient failed outpatient management so he came to the hospital for evaluation. Podiatry was consulted in which indicate he had plantar puncture on bilateral feet. Patient went to surgical intervention by Dr. Valdez in which she did I&D of abscess of the right hallux and bone biopsy, I& D of the left foot with partial third amputation and bone pathology did indicate that there was acute osteomyelitis of the third toe. Cultures were performed which did indicate staph aureus. Infectious disease following the patient and patient was started on Cefzil and. Patient had to go back to surgery because of necrotic tissue yesterday. Dr. Moore was able to debride the area. Patient is doing much better this time. Infectious disease recommends 3 weeks of antibiotics to include Rocephin [address] Moore indicates patient is medically stable to discharge with outpatient follow-up. Arranging midline and replace this time, case management consulted for outpatient infusion center IV antibiotics. Wound care will be continued by patient and family. 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 Pt Condition on Discharge: Stable Discharge Disposition: Discharge Home Discharge Time: > 30 minutes Discharge Instructions DIET: Follow Instructions for: As Tolerated, No Restrictions Activities you can perform: Regular-No Restrictions Activities to Avoid: Driving for 24 hrs Follow up Referrals: PCP Follow-up - 1 Week Podiatry - 1 Week with Paulina Valdez DPM New Medications: Nifedipine ER 24 HR (Procardia XL) 60 Mg Tab 60 MG PO DAILY for Blood Pressure Management, #30 TAB 0 Refills Oxycodone (Oxycodone) 5 Mg Tab 5 MG PO Q6H PRN for pain, #10 TAB Discontinued Medications: Ciprofloxacin (Cipro) 250 Mg Tab 750 MG PO BID for Infection, #10 TAB 0 Refills Clindamycin (Clindamycin) 150 Mg Cap 450 MG PO Q8HR for Infection, #10 CAP 0 Refills Paras Lugo Mar 20, 2017 13:17
[2017-03-20] MEDS ORDERED: WHEEMIS3 (14:14)
[2017-03-20 16:00] VITALS: BP 145/97; PULSE 104; RESP 20; TEMP 97.6; O2SAT 97
[2017-03-21] MEDS ORDERED: CEFT2INJ2 IV (08:48)
--- NOTE | 2017-03-21 22:51 | MP ---
cc: NATALIIA DAWN. DPM DATE OF SURGERY 03/19/17 PREOPERATIVE DIAGNOSIS Left foot ulcer infection. POSTOPERATIVE DIAGNOSIS Left foot ulcer infection. PROCEDURES PERFORMED Left foot incision and drainage, debridement and delayed primary closure of wound greater than 8 cm. INTRAOPERATIVE COMPLICATIONS None. SPECIMEN None. ESTIMATED BLOOD LOSS Less than 50 ml. ANESTHESIA General with local. DRAIN 1/4 inch Iodoform packing for a drain. TOURNIQUET None. PLAN OF ACTIVITY PACU then return to floor to monitor wound healing. JUSTIFICATION FOR PROCEDURE This is a 56-year-old male who is status post puncture wound and third ray amputation. It appears that there are clear margins specifically the left foot, however, there is necrosis of the skin of the dorsum of the left foot. We devised a plan to move forward with operative debridement, possible wound VAC or delayed primary closure of wound. No guarantees were given or implied regarding the outcome. The patient will likely need to continue strict diabetic control, IV antibiotics as well as wound care due to him having bilateral foot ailment. PROCEDURE IN DETAIL Under mild sedation the patient is brought to the operating room, placed on the operative table in the supine position. Following the induction of general anesthesia, local anesthesia was attained about the proximal forefoot utilizing standard block fashion. The patient's left foot was then scrubbed, prepped and draped in the usual aseptic fashion. The foot was elevated and examined. The incision site dorsal to plantar over the third ray was explored, sutures were removed. The inner contents of the deep musculature and fascia was debrided. There is noted to be viable tissue. There is no tory purulence. There is a dorsal ischemic edge of the dorsal lateral aspect of the incision margin. This was sharply excised approximately 1 cm from this area of ischemic changes. There is noted to be bleeding at the margin at this time. Utilizing copious amounts of normal saline the wound was then flushed. Utilizing retention sutures the wound was then closed primarily, packing was placed at the most proximal aspect of the wound closure, bulky bandage placed. The patient transferred from OR to PACU with all vital signs stable. The patient will stay on the floor until I see significant improvement. The patient may need rehab placement since he has a right foot wound as well. PHAM Vicente/EDILMA /12:51 PM /10:37 PM MTDMary
--- NOTE | 2017-03-23 10:21 | MP ---
cc: AUTUMNMADHUDmitriy NATH DATE OF SURGERY: 03/15/2017 INDICATION AND PROCEDURE The patient presented to the emergency department with infection after stepping on a nail to his right great toe and his left mid foot area with infection to both of these areas. He had an MRI performed of both feet which showed possible osteomyelitis of the right great toe and osteomyelitis with abscess of the left third metatarsal and toe. I discussed with the patient that I would like to try to salvage the great toe if possible on the right side and discussed with him doing incision and drainage of the abscess to the right great toe with a bone biopsy as well as doing abscess I&D with a third partial ray amputation with the bone biopsy of the residual metatarsal on the left foot in order to determine if more of the metatarsal has to come and also the length of time for antibiotics. He consented to these procedures. He was seen in preop holding by myself, nursing staff and Anesthesia where the correct patient, side and site were all confirmed to be correct. He was then taken to the surgical suite, placed in supine position where attention was directed to both feet. They were prepped and draped in normal sterile fashion. Attention was then directed to the plantar puncture wound area to be sub right first proximal phalanx area, a small pinhole, the toe was slightly erythematous. An incision was made plantarly and the abscess was located. A second incision was also made to the dorsomedial aspect of the digit where the abscess was tracking to alongside the medial aspect of proximal phalanx. This area was copiously irrigated with 3 liters of normal sterile saline. The plantar puncture wound area was excised and removed. Culture was then taken of the right hallux followed by a bone biopsy taken from the plantar aspect of the proximal phalanx of the hallux where the nail hole path had bled toward that area. A partial closure was performed and the area was packed with one-quarter inch Iodoform gauze followed by 4x4s, cast padding and Amilcar bandage to the right foot. Attention was then directed to the left plantar third metatarsal head area where a puncture wound was noted in the area. Two semi elliptical incisions were made medially and laterally to encompass that third digit down to the metatarsal. The third metatarsal was then transected after dissection at the mid shaft area and the distal portion of the metatarsal and the third toe were sent to pathology as specimen. Bone from the residual third metatarsal was sent for biopsy and a culture was also taken of the left foot. There was copious amount of purulent drainage noted in this area and it was irrigated with 3 liters normal sterile saline followed by a partial closure and packing with quarter inch Iodoform gauze, 4x4s, ABD pads, cast padding and Amilcar bandage. The patient tolerated the procedure and anesthesia well without complications and was taken to PACU with vital signs stable, vascular status intact to the remainder of right and left feet. He will likely have an attempt at delayed primary closure later in the week after awaiting the bone biopsy and culture results to determine long-term IV antibiotics and viability of tissue in left foot and the viability of the right hallux. Definitely will reevaluate later in the week. SURGEON Dr. Paulina Valdez UNIT T[employer]ER Staff. PREOPERATIVE DIAGNOSIS 1. Abscess right great toe with possible osteomyelitis. 2. Osteomyelitis with abscess left third metatarsal and toe. POSTOPERATIVE DIAGNOSIS 1. Abscess right great toe with possible osteomyelitis. 2. Osteomyelitis with abscess left third metatarsal and toe. PROCEDURE 1. Incision and drainage of abscess right hallux with bone biopsy right proximal phalanx. 2. Incision and drainage left foot with partial left third ray amputation and bone biopsy of left residual third metatarsal. PATHOLOGY 1. Culture right hallux. 2. Bone biopsy right hallux proximal phalanx. 3. Culture left foot. 4. Partial left third ray to pathology. 5. Bone biopsy left residual third metatarsal. ANESTHESIA General endotracheal anesthesia. ESTIMATED BLOOD LOSS Minimal. TOURNIQUET TIME Right ankle tourniquet at 250 mmHg times 27 minutes, left ankle tourniquet at 250 mmHg times 19 minutes. CONDITION Stable to PACU. DISPOSITION Likely attempt at delayed primary closure of left foot later this week and will observe the right hallux and left foot to determine need for further surgery and need for long-term IV antibiotics based on biopsy results to be evaluated by Dr. Moore later in the week. Paulina Valdez HM/TLL /6:06 PM /9:57 AM
[2017-04-02] MEDS ORDERED: HYDR-4107 PO (08:51)
== END 2017-03-20 17:19 | disposition home or self-care (01) | DRG 464 ==
LOC: PHED 10:02 → PHEDA 11:53 → PH3A 16:33
PROVIDERS: ADMIT Hospitalist; ATTEND Hospitalist
PROC: 0QBP0ZX Excision of Left Metatarsal, Open Approach, Diagnostic (ICD-10-PCS; 2017-03-15)
PROC: 0J9R0ZZ Drainage of Left Foot Subcutaneous Tissue and Fascia, Open Approach (ICD-10-PCS; 2017-03-15)
PROC: 0Y6N0ZC Detachment at Left Foot, Partial 3rd Ray, Open Approach (ICD-10-PCS; 2017-03-15 08:11)
PROC: 3E0T3CZ (ICD-10-PCS; 2017-03-19)
PROC: 0JBR0ZZ Excision of Left Foot Subcutaneous Tissue and Fascia, Open Approach (ICD-10-PCS; principal; 2017-03-19 12:11)
DX: M86.171 Other acute osteomyelitis, right ankle and foot (principal); L03.115 Cellulitis of right lower limb; D69.59 Other secondary thrombocytopenia; L03.116 Cellulitis of left lower limb; M86.172 Other acute osteomyelitis, left ankle and foot; L02.612 Cutaneous abscess of left foot; S91.331A Puncture wound without foreign body, right foot, initial encounter; H54.62 Unqualified visual loss, left eye, normal vision right eye; S91.332A Puncture wound without foreign body, left foot, initial encounter; R73.9 Hyperglycemia, unspecified; I10 Essential (primary) hypertension; B19.20 Unspecified viral hepatitis C without hepatic coma; R21 Rash and other nonspecific skin eruption; B95.61 Methicillin susceptible Staphylococcus aureus infection as the cause of diseases classified elsewhere; W45.0XXA Nail entering through skin, initial encounter; Z87.891 Personal history of nicotine dependence
CPT/HCPCS: 36569; 73630; 73720; 76705; 76937; 80053; 80074; 80076; 80202; 80307; 82247; 82248; 82550; 83036; 83605; 83690; 83735; 84443; 85025; 85610; 85652; 85730; 86140; 86403; 87015; 87040; 87070; 87102; 87116; 87147; 87186; 87205; 87206; 87522; 88305; 88307; 88311; 93005; 96374; A9579; J0610; J0690; J1100; J1170; J2250; J2543; J2765; J3010; J3370; J7040; J7050; J7120; L3260